=== PATIENT | male | born 1960 | race Caucasian/White ===

== ENCOUNTER 2016-10-18 05:50 | Emergency (ER) | payer BC ==
[~2016-10-18] VITALS: Ht 177.8 cm; Wt 120.4 kg
[2016-10-18 05:55] VITALS: BP 161/97; PULSE 97; RESP 18; TEMP 98.3; O2SAT 97
[2016-10-18] MEDS ORDERED: MIRA3350 PO (06:12)
[2016-10-18] MEDS ORDERED: METF850T PO (06:12)
[2016-10-18] MEDS ORDERED: LOSA25TA PO (06:12)
[2016-10-18 06:13] VITALS: BP 159/90; PULSE 95; RESP 18; TEMP 98.3; O2SAT 96
[2016-10-18] MEDS ORDERED: SODIUM CHLOR 0.9% 1000 ML INJ 1,000 ML IV SCH (06:15)
[2016-10-18] MEDS ORDERED: ONDANSETRON HCL 4 MG/2 ML VIAL IV ONE (06:15)
[2016-10-18] MEDS ORDERED: ASPI81CH CHEW (06:28)
--- NOTE | 2016-10-18 06:29 | PD ---
HPI Chief Complaint: GI Complaint Time Seen by Provider: 06:07 Travel History International Travel<30 days: No Contact w/Intl Traveler<30days: No Traveled to known affect area: No History of Present Illness HPI Is a 55-year-old man who presents to the emergency department complaining of not feeling well 15 nausea and abdominal fullness for the past several days. He has a history of rectal cancer and has an ostomy that was done in 2004. He takes MiraLAX daily to ensure soft loose bowel movements. He states for the past several days he started not feeling well. He has a lot of fatigue and tiredness. He has nausea and queasiness and doesn't really feel like she can eat much. He is not actually had any vomiting. He is not noticed any change in his stool output, which is always loose. No fevers or chills. He does get some of epigastric abdominal discomfort but it mild to moderate. He's had 3 bowel obstructions in the past but the pain was much different than what he has now. No sick contacts. No unusual or undercooked foods. No cough or cold symptoms. No chest pain or trouble breathing. No other complaints. History Past Medical History Narrative Medical History of rectal cancer, status post ostomy 2004 Diabetes Hyperlipidemia Tetanus Vaccination: Unknown Influenza Vaccination: No Social History Alcohol Use: No Tobacco Use: No Allergies-Medications (Allergen,Severity, Reaction): Coded Allergies: No Known Allergies (Unverified , 10/18/16) Reported Meds & Prescriptions Reported Meds & Active Scripts Active Reported Aspirin 81 Mg Chew 81 Mg CHEW DAILY Miralax Powder (Polyethylene Glycol 3350 Powder) 17 Gm Powd 17 Gm PO DAILY Mix and dissolve one measuring cap-ful (17 grams) in water or juice. Metformin (Metformin HCl) 850 Mg Tab 850 Mg PO BIDPC With meals Losartan (Losartan Potassium) 25 Mg Tab 25 Mg PO DAILY Review of Systems Except as stated in HPI: all other systems reviewed are Neg Physical Exam Narrative GENERAL: 55-year-old man, generally well-appearing, no acute distress. SKIN: Focused skin assessment warm/dry. HEAD: Atraumatic. Normocephalic. CARDIOVASCULAR: Regular rate and rhythm. No murmur appreciated. RESPIRATORY: No accessory muscle use. Clear to auscultation. Breath sounds equal bilaterally. GASTROINTESTINAL: Abdomen is rotund in full. There is an ostomy in the lower abdomen. There is no stool output at the moment. He has minimal epigastric tenderness. No rebound or guarding. MUSCULOSKELETAL: No obvious deformities. No edema. NEUROLOGICAL: Awake and alert. No obvious cranial nerve deficits. Motor grossly within normal limits. Normal speech. PSYCHIATRIC: Appropriate mood and affect; insight and judgment normal. Data Data Last Documented VS Vital Signs Date Time Temp Pulse Resp B/P Pulse Ox O2 Delivery O2 Flow Rate FiO2 10/18/16 06:13 98.3 95 18 159/90 96 Orders Complete Blood Count With Diff (10/18/16 06:07) Comprehensive Metabolic Panel (10/18/16 06:07) Urinalysis - C+S If Indicated (10/18/16 06:07) Iv Access Insert/Monitor (10/18/16 06:07) Sodium Chlor 0.9% 1000 Ml Inj (Ns 1000 M (10/18/16 06:15) Ondansetron Inj (Zofran Inj) (10/18/16 06:15) Troponin I (10/18/16 06:27) Electrocardiogram (10/18/16 ) MDM Medical Decision Making Medical Screen Exam Complete: Yes Emergency Medical Condition: Yes Interpretation(s) My review of EKG: Normal sinus rhythm at a rate of 88, leftward axis, normal intervals, no acute ischemia. Differential Diagnosis Gastroenteritis, enteritis, infection, ischemia, obstruction, other Narrative Course Medical decision making INITIAL: Is a 55-year-old man who presents to the emergency department complaining of fatigue and weakness, some abdominal fullness, and some nausea. No vomiting. His a history of abdominal surgery but his not having any severe pain. His output has been normal. I think that an obstruction is unlikely. Fatigue and nausea could be surrogate some myocardial ischemia. I think that's unlikely. We'll check an EKG and troponin. We'll check basic labs. There is any question of worsening disease, we'll check CT scan. Otherwise will defer imaging and will treat supportively for what is likely a stomach bug. Jordy Ni MD Oct 18, 2016 06:29
[2016-10-18 06:42] LABS: BASOPHIL % 0.4 % (0.0-2.0); EOSINOPHIL # 0.1 TH/MM3 (0-0.4); EOSINOPHIL % 2.5 % (0.0-4.0); HEMATOCRIT 43.6 % (39.0-51.0); HEMO FLAGS DIFF FINAL; LYMPH % 16.9 % (9.0-44.0); LYMPHOCYTE # 0.5 TH/MM3 (1.0-4.8); MEAN CELL VOLUME 84.7 FL (80.0-100.0); MEAN CORPUSCULAR HGB CONC 34.3 % (32.0-36.0); MONO % 9.5 % (0.0-8.0); NEUT % 70.7 % (16.0-70.0); PLATELET COUNT 179 TH/MM3 (150-450); RED BLOOD COUNT 5.14 MIL/MM3 (4.50-5.90); RED CELL DISTRIBUTION WIDTH 12.3 % (11.6-17.2)
[2016-10-18 06:45] LABS: CHLORIDE 102 MEQ/L (98-107); POTASSIUM 3.8 MEQ/L (3.5-5.1); SODIUM (NA) 137 MEQ/L (136-145)
[2016-10-18 06:49] LABS: ANION GAP 8 MEQ/L (5-15); BICARBONATE 27.3 MEQ/L (21.0-32.0); BLOOD UREA NITROGEN 12 MG/DL (7-18)
[2016-10-18 06:50] VITALS: BP 159/82; PULSE 86; RESP 16; O2SAT 94
[2016-10-18 06:52] LABS: ALT (GPT) 72 U/L (12-78); AST (GOT) 38 U/L (15-37); GLOMERULAR FILTRATION RATE 70 ML/MIN (>89)
[2016-10-18 06:55] LABS: ALKALINE PHOSPHATASE 132 U/L (45-117)
[2016-10-18 08:06] LABS: BLOOD, URINE NEG (NEG); GLUCOSE,URINE 500 mg/dL (NEG); KETONE, URINE 15 mg/dL (NEG); NITRITE,URINE NEG (NEG); PH, URINE 5.5 (5.0-8.5)
[2016-10-18 08:10] VITALS: BP 144/79; PULSE 80; RESP 16; O2SAT 94
[2016-10-18 08:16] LABS: METHOD OF COLLECTION CLEAN CATCH; MUCUS URINE RARE /lpf (OCC); SQUAMOUS EPITHELIAL CELL URINE 0-2 /hpf (0-5); URINE COLOR YELLOW (YELLW/STRAW); WBC, URINE 0-2 /hpf (0-5)
[2016-10-18 08:17] LABS: COMMENT (UR) CULT NOT INDICATED; CULTURE IF INDICATED CULT NOT INDICATED
[2016-10-18] MEDS ORDERED: ZOFR4TAB3 SL (08:23)
--- NOTE | 2016-10-18 08:24 | PD ---
Physical Exam Date Seen by Provider: Oct 18, 2016 Time Seen by Provider: 07:00 Narrative Patient initially seen by Dr. Ni, please see previous notes for further details. Awaiting UA. Abdomen is fairly benign on exam. Patient feels much improved after being given Zofran. Laboratory Tests Test 10/18/16 10/18/16 06:20 08:00 White Blood Count 3.0 TH/MM3 (4.0-11.0) Neutrophils (%) (Auto) 70.7 % (16.0-70.0) Monocytes (%) (Auto) 9.5 % (0.0-8.0) Lymphocytes # (Auto) 0.5 TH/MM3 (1.0-4.8) Estimat Glomerular Filtration 70 ML/MIN (>89) Rate Random Glucose 275 MG/DL (74-106) Calcium Level 8.2 MG/DL (8.5-10.1) Aspartate Amino Transf 38 U/L (15-37) (AST/SGOT) Alkaline Phosphatase 132 U/L (45-117) Urine Glucose (UA) 500 mg/dL (NEG) Urine Ketones 15 mg/dL (NEG) UA did not show any signs of acute UTI or other acute processes. At this point , he is doing well in the ER my plan would be to release him with follow-up to primary care physician. Return for any worsening in symptoms as necessary. The plan has been discussed with the patient and he states understanding. Data Data Last Documented VS Vital Signs Date Time Temp Pulse Resp B/P Pulse Ox O2 Delivery O2 Flow Rate FiO2 10/18/16 06:50 86 16 159/82 94 10/18/16 06:13 98.3 Orders Complete Blood Count With Diff (10/18/16 06:07) Comprehensive Metabolic Panel (10/18/16 06:07) Urinalysis - C+S If Indicated (10/18/16 06:07) Iv Access Insert/Monitor (10/18/16 06:07) Sodium Chlor 0.9% 1000 Ml Inj (Ns 1000 M (10/18/16 06:15) Ondansetron Inj (Zofran Inj) (10/18/16 06:15) Troponin I (10/18/16 06:27) Electrocardiogram (10/18/16 ) Labs Laboratory Tests Test 10/18/16 10/18/16 06:20 08:00 White Blood Count 3.0 TH/MM3 Red Blood Count 5.14 MIL/MM3 Hemoglobin 14.9 GM/DL Hematocrit 43.6 % Mean Corpuscular Volume 84.7 FL Mean Corpuscular Hemoglobin 29.0 PG Mean Corpuscular Hemoglobin 34.3 % Concent Red Cell Distribution Width 12.3 % Platelet Count 179 TH/MM3 Mean Platelet Volume 7.8 FL Neutrophils (%) (Auto) 70.7 % Lymphocytes (%) (Auto) 16.9 % Monocytes (%) (Auto) 9.5 % Eosinophils (%) (Auto) 2.5 % Basophils (%) (Auto) 0.4 % Neutrophils # (Auto) 2.0 TH/MM3 Lymphocytes # (Auto) 0.5 TH/MM3 Monocytes # (Auto) 0.3 TH/MM3 Eosinophils # (Auto) 0.1 TH/MM3 Basophils # (Auto) 0.0 TH/MM3 CBC Comment DIFF FINAL Differential Comment Sodium Level 137 MEQ/L Potassium Level 3.8 MEQ/L Chloride Level 102 MEQ/L Carbon Dioxide Level 27.3 MEQ/L Anion Gap 8 MEQ/L Blood Urea Nitrogen 12 MG/DL Creatinine 1.10 MG/DL Estimat Glomerular Filtration 70 ML/MIN Rate Random Glucose 275 MG/DL Calcium Level 8.2 MG/DL Total Bilirubin 1.0 MG/DL Aspartate Amino Transf 38 U/L (AST/SGOT) Alanine Aminotransferase 72 U/L (ALT/SGPT) Alkaline Phosphatase 132 U/L Total Protein 7.3 GM/DL Albumin 3.7 GM/DL Urine Collection Type CLEAN CATCH Urine Color YELLOW Urine Turbidity CLEAR Urine pH 5.5 Urine Specific [place] 1.028 Urine Protein TRACE mg/dL Urine Glucose (UA) 500 mg/dL Urine Ketones 15 mg/dL Urine Occult Blood NEG Urine Nitrite NEG Urine Bilirubin NEG Urine Leukocyte Esterase NEG Urine WBC 0-2 /hpf Urine Squamous Epithelial 0-2 /hpf Cells Urine Mucus RARE /lpf Microscopic Urinalysis Comment CULT NOT INDICATED MDM Medical Record Reviewed: Yes Supervised Visit with STEVAN: No Diagnosis Primary Impression: Nausea and vomiting Med/Other Pt SpecificInfo: Prescription(s) given Scripts Ondansetron Odt (Zofran Odt)4 Mg Tab4 Mg SL Q6HR PRN (Nausea/Vomiting) #7 TAB Ref 0 Prov:Nixon Burns MD 10/18/16 Disposition: 01 DISCHARGE HOME Condition: Stable Nixon Burns MD Oct 18, 2016 08:24
--- NOTE | 2016-10-18 08:36 | EKG ---
Date Performed: 10/18/2016 Time Performed: 06:36:52 PTAGE: 55 years EKG: Sinus rhythm NORMAL ECG NO PREVIOUS TRACING DOCTOR: Jordy Eldridge Interpretating Date/Time 10/18/2016 08:35:09
== END 2016-10-18 08:38 | disposition home or self-care (01) ==
LOC: PHED 05:50
DX: R11.2 Nausea with vomiting, unspecified (principal); R53.83 Other fatigue; E11.9 Type 2 diabetes mellitus without complications; E78.5 Hyperlipidemia, unspecified; Z79.82 Long term (current) use of aspirin; Z79.84 Long term (current) use of oral hypoglycemic drugs; Z85.048 Personal history of other malignant neoplasm of rectum, rectosigmoid junction, and anus
CPT/HCPCS: 80053; 81001; 84484; 85025; 93005; 96361; 96374; 99284; J2405; J7030

== ENCOUNTER 2017-12-22 12:33 | Inpatient (IN) ==
--- NOTE | 2017-12-22 13:38 | XR ---
EXAM DATE: 12/22/2017 1:33 PM EDT AGE/SEX: 57 years / Male INDICATIONS: Left lateral ankle pain. Patient states that he fell off of a ladder and rolled his ank le. CLINICAL DATA: This is the patient's initial encounter. Patient reports that signs and symptoms have been present for 1 day and indicates a pain score of 8/10. MEDICAL/SURGICAL HISTORY: None. None. COMPARISON: No prior exams available for comparison. FINDINGS: Soft tissue swelling at the lateral aspect of the ankle. The ankle mortise is approximated. There is a comminuted fractures through the mid to anterior aspect of the calcaneus. CT is suggested for furth er evaluation. There may be a oblique fracture lucency along the posterior aspect of the calcaneus as well. CONCLUSION: Calcaneus fractures. Soft tissue swelling. Electronically signed by: Luis Alfredo Allen MD 12/22/2017 1:36 PM EDT
--- NOTE | 2017-12-22 13:39 | ED ---
HPI General Chief complaint: Extremity Injury, Lower Stated complaint: L Ankle Injury Time Seen by Provider: 12/22/17 12:47 Source: patient Mode of arrival: ambulatory Limitations: no limitations History of Present Illness HPI narrative: Patient is a 57 year old male who comes in complaining of pain to his left ankle after he fell off a ladder today. He says he landed on his left foot and his ankle twisted. He then reports falling over into the grass. He denies any other injuries. He denies hitting his head or any LOC. He has not taken anything for his pain. He denies neck or back pain. He denies chest pain or abdominal pain. Severity is mild to moderate. Related Data Home Medications Medication Instructions Recorded Confirmed atorvastatin 10 mg PO DAILY 12/22/17 12/22/17 glipizide 10 mg PO DAILY 12/22/17 12/22/17 metformin 1,000 mg PO BID 12/22/17 12/22/17 Allergies Allergy/AdvReac Type Severity Reaction Status Date / Time No Known Allergies Allergy Verified 12/22/17 16:11 Review of Systems Constitutional Denies chills and Denies fever(s) ENT Denies dizziness Cardiovascular Denies chest pain and Denies dyspnea Gastrointestinal Denies abdominal pain, Denies loose stools and Denies nausea Musculoskeletal Denies myalgias, Denies arthralgias and Reports limited range of motion Integumentary/Breasts Denies rash and Denies wounds Neurologic Denies focal weakness and Denies numbness PMFSH Social History Social History Substance History: No History of Abuse Second Hand Smoke Exposure: No Smoking Status: Never smoker How Often Do You Have a Drink Containing Alcohol: 2 to 4 times a month Recent Travel in [facility] within the Last 8 Weeks: No Recent Out of Country Travel within the Last 8 Weeks: No Immunization History Tetanus Immunization: Unsure Exam Narrative Exam Narrative: GENERAL: Awake and alert, in no acute distress. SKIN: Focused skin assessment warm/dry. Abrasion to right forearm. HEAD: Atraumatic. Normocephalic. EYES: Pupils equal and round. No scleral icterus. ENT: Mucous membranes pink and moist. NECK: Trachea midline. No JVD. No cervical spine tenderness. No lumbar or thoracic spine tenderness. CARDIOVASCULAR: Regular rate and rhythm. No murmur appreciated. RESPIRATORY: No accessory muscle use. Clear to auscultation. Breath sounds equal bilaterally. MUSCULOSKELETAL: No obvious deformities. No clubbing. No cyanosis. Swelling to the left ankle. Tender to palpation of the left lateral malleolus. No tenderness to the other extremities. Pedal pulse and sensation intact. NEUROLOGICAL: Awake and alert. No obvious cranial nerve deficits. Motor grossly within normal limits. Normal speech. Course Initial Documented Vital Signs Temperature 98.5 F 12/22/17 12:37 Blood Pressure 195/89 H 12/22/17 12:37 Pulse Oximetry 96 12/22/17 12:37 Last Documented Vital Signs Temperature 98.5 F 12/22/17 12:37 Respiratory Rate 18 12/22/17 14:16 Blood Pressure 195/89 H 12/22/17 12:37 Pulse Oximetry 96 12/22/17 12:37 Medical Decision Making MDM Narrative Medical decision making narrative: Patient is a 57-year-old male who comes in complaining of left ankle pain after a fall. Exam shows tenderness to the malleolus. X-ray is concerning for calcaneal fracture. CT ordered shows multiple displaced fractures of the calcaneus. IV established, labs sent. I spoke with podiatry who would like the patient admitted for surgery tomorrow. They recommend keeping him n.p.o. after midnight. Patient be admitted for further management. Medical Screen Exam Complete: Yes Emergency Medical Condition: Yes Differential Diagnosis Differential Diagnosis: ankle fracture vs foot fracture vs sprain Medical Records Medical records reviewed: Yes I reviewed the patient's medical records. Imaging Data Radiologist's impression: Ankle X-Ray 12/22/17 13:10 Soft tissue swelling at the lateral aspect of the ankle. The ankle mortise is approximated. There is a comminuted fractures through the mid to anterior aspect of the calcaneus. CT is suggested for further evaluation. There may be a oblique fracture lucency along the posterior aspect of the calcaneus as well. CONCLUSION: Calcaneus fractures. Soft tissue swelling. Foot CT 12/22/17 13:40 CONCLUSION: 1. Base of fifth metatarsal fracture, nondisplaced. 2. Heavily comminuted fracturing of the calcaneus identified. Discharge Plan Discharge Disposition Patient Disposition: 30 Still Patient Discharge Condition Condition: Stable Discharge Details Diagnosis: Calcaneal fracture Physicians Team ED Provider: Tory Ashley Primary Care Provider: UNKNOWN, Rxs /Orders / Referrals /Forms Prescriptions: No Action glipizide 10 mg Tablet 10 mg PO DAILY RF: 0 metformin 1,000 mg Tablet 1,000 mg PO BID RF: 0 atorvastatin 10 mg Tablet 10 mg PO DAILY RF: 0 Status ED Status: With Doctor
--- NOTE | 2017-12-22 15:08 | CT ---
EXAM DATE: 12/22/2017 2:58 PM EDT AGE/SEX: 57 years / Male INDICATIONS: Trauma; fall off ladder. CLINICAL DATA: This is the patient's initial encounter. Patient reports that signs and symptoms have been present for 1 day and indicates a pain score of 10/10. MEDICAL/SURGICAL HISTORY: None. None. RADIATION DOSE: 3.04 CTDI (mGy) COMPARISON: [facility], ANKLE COMPLETE LEFT MIN 3V, 12/22/2017. . TECHNIQUE: Multiple contiguous axial images were acquired using a multirow detector CT scanner witho ut contrast. Multiplanar reconstruction was performed in the sagittal and coronal planes. Using auto mated exposure control and adjustment of the mA and/or kV according to patient size, radiation dose w as kept as low as reasonably achievable to obtain optimal diagnostic quality images. DICOM format im age data is available electronically for review and comparison. FINDINGS: There is a heavily comminuted and displaced fracture through the calcaneus identified. Multiple displ aced fragments are seen. There is a nondisplaced fracture through the base of the fifth metatarsal al so noted. There is subcutaneous edema at the lateral aspect of the ankle. CONCLUSION: 1. Base of fifth metatarsal fracture, nondisplaced. 2. Heavily comminuted fracturing of the calcaneus identified. Electronically signed by: Luis Alfredo Allen MD 12/22/2017 3:06 PM EDT
[2017-12-22] MEDS ORDERED: Morphine Inj 4 MG/ML Vial IV.PUSH ONE (17:08)
[2017-12-22 17:15] LABS: Baso % (Auto) 0.6 % (0.0-2.0); Eos # (Auto) 0.1 th/mm3 (0.0-0.4); Eos % (Auto) 1.8 % (0.0-4.0); Hematocrit 43.1 % (39.0-51.0); Hemoglobin 15.1 gm/dL (13.0-17.0); Lymph # (Auto) 1.2 th/mm3 (1.0-4.8); Lymph % (Auto) 20.1 % (9.0-44.0); Mean Corpuscular HGB Conc 35.1 % (32.0-36.0); Mean Corpuscular Hemoglobin 30.2 pg (27.0-34.0); Mean Corpuscular Volume 86.1 fL (80.0-100.0); Mean Platelet Volume 8.2 fL (7.0-11.0); Mono # (Auto) 0.3 th/mm3 (0.0-0.9); Mono % (Auto) 5.5 % (0.0-8.0); Neut # (Auto) 4.3 th/mm3 (1.8-7.7); Platelet Count 188 th/mm3 (150-450); Red Cell Distribution Width 12.6 % (11.6-17.2)
[2017-12-22] MEDS ORDERED: Acetaminophen 325 MG Tablet PO PRN (17:15)
[2017-12-22] MEDS ORDERED: Bisacodyl 10 MG Supp RECTAL PRN (17:15)
[2017-12-22] MEDS ORDERED: Dextrose 50% in Water 50 ML Vial IV.PUSH PRN (17:20)
--- NOTE | 2017-12-22 17:21 | P.HPIM ---
History of Present Illness Primary Care Physician: [facility] - History History Provided By: Patient - Tobacco History Second Hand Smoke Exposure: No Smoking Status: Never smoker - Alcohol History How Often Do You Have a Drink Containing Alcohol: 2 to 4 times a month - Substance Use History Substance History: No History of Abuse - Travel History Recent Travel in the [place] Within the Last 8 Weeks: No Recent Travel Out of the Country Within the Last 8 Weeks: No - Immunization History Tetanus Immunization: Unsure Medications and Allergies Active Medications: Active Medications Acetaminophen (Tylenol) 650 mg PO Q4H PRN PRN Reason: Temp > 100.4 Al Hydroxide/Mg Hydroxide (Milk Of Magnesia Liq) 30 ml PO Q12H PRN PRN Reason: Mild Constipation Atorvastatin Calcium (Lipitor) 10 mg PO DAILY MARGY Bisacodyl (Dulcolax Supp) 10 mg RECTAL DAILY PRN PRN Reason: SEVERE CONSITIPATION Sodium Chloride (Ns Inj) 1,000 mls @ 100 mls/hr IV.CONT .Q10H MARGY Lactulose (Lactulose Liq) 30 ml PO DAILY PRN PRN Reason: SEVERE CONSITIPATION Ondansetron HCl (Zofran Inj) 4 mg IV.PUSH Q6H PRN PRN Reason: NAUSEA OR VOMITING Senna/Docusate Sodium (Dalia-Colace) 1 tab PO BID MARGY Sennosides (Senokot) 17.2 mg PO Q12H PRN PRN Reason: Moderate Constipation Allergies Allergy/AdvReac Type Severity Reaction Status Date / Time No Known Allergies Allergy Verified 12/22/17 16:11 Home Medications Medication Instructions Recorded Confirmed Type atorvastatin 10 mg PO DAILY 12/22/17 12/22/17 History glipizide 10 mg PO DAILY 12/22/17 12/22/17 History metformin 1,000 mg PO BID 12/22/17 12/22/17 History Exam Vital signs: Vital Signs 12/22/17 12:37 12/22/17 14:16 Temperature 98.5 F Respiratory Rate 18 Blood Pressure 195/89 H Pulse Oximetry 96 Intake & Output 12/21/17 12/22/17 12/22/17 18:59 06:59 18:59 Weight 117.934 kg Results - Labs CBC & Chem 7: 12/22/17 16:00 12/22/17 16:00 Labs: Short CBC 12/22/17 Range/Units 16:00 WBC 6.0 (4.0-11.0) th/mm3 Hgb 15.1 (13.0-17.0) gm/dL Hct 43.1 (39.0-51.0) % Plt Count 188 (150-450) th/mm3 - Imaging Impressions Ankle X-Ray 12/22/17 13:10 Soft tissue swelling at the lateral aspect of the ankle. The ankle mortise is approximated. There is a comminuted fractures through the mid to anterior aspect of the calcaneus. CT is suggested for further evaluation. There may be a oblique fracture lucency along the posterior aspect of the calcaneus as well. CONCLUSION: Calcaneus fractures. Soft tissue swelling. Foot CT 12/22/17 13:40 CONCLUSION: 1. Base of fifth metatarsal fracture, nondisplaced. 2. Heavily comminuted fracturing of the calcaneus identified. Caprini VTE Risk Assessment Caprini Risk Assessment Model: Point Value = 1 Point Value = 2 Point Value = 3 Point Value = 5 Age 41-60 Minor surgery BMI > 25 kg/m2 Swollen legs Varicose veins or History of unexplained or recurrent spontaneous Oral contraceptives or hormone replacement Sepsis (< 1 month) Serious lung disease, including pneumonia (< 1 month) Abnormal pulmonary function Acute myocardial infarction Congestive heart failure (< 1 month) History of inflammatory bowel disease Medical patient at bed rest Age 61-74 Arthroscopic surgery Major open surgery (> 45 min) Laparoscopic surgery (> 45 min) Malignancy Confined to bed (> 72 hours) Immobilizing plaster cast Central venous access Age >= 75 History of VTE Family history of VTE Factor V Leiden Prothrombin 18501D Lupus anticoagulant Anticardiolipin antibodies Elevated serum homocysteine Heparin-induced thrombocytopenia Other congenital or acquired thrombophilia Stroke (< 1 month) Elective arthroplasty Hip, pelvis, or leg fracture Acute spinal cord injury (< 1 month) Prophylaxis Regimen: Total Risk Factor Score Risk Level Prophylaxis Regimen 0-1 Low Early ambulation 2 Moderate Order ONE of the following: *Sequential Compression Device (SCD) *Heparin 5000 units SQ BID 3-4 Higher Order ONE of the following medications: *Heparin 5000 units SQ TID *Enoxaparin/Lovenox 40 mg SQ daily (WT < 150 kg, CrCl > 30 mL/min) *Enoxaparin/Lovenox 30 mg SQ daily (WT < 150 kg, CrCl > 10-29 mL/min) *Enoxaparin/Lovenox 30 mg SQ BID (WT < 150 kg, CrCl > 30 mL/min) AND/OR *Sequential Compression Device (SCD) 5 or more Highest Order ONE of the following medications: *Heparin 5000 units SQ TID (Preferred with Epidurals) *Enoxaparin/Lovenox 40 mg SQ daily (WT < 150 kg, CrCl > 30 mL/min) *Enoxaparin/Lovenox 30 mg SQ daily (WT < 150 kg, CrCl > 10-29 mL/min) *Enoxaparin/Lovenox 30 mg SQ BID (WT < 150 kg, CrCl > 30 mL/min) AND *Sequential Compression Device (SCD)
[2017-12-22 17:24] LABS: Activated Partial Thrombo Time 24.3 sec (24.3-30.1); INR 1.2 Ratio; Prothrombin Time 11.9 sec (9.8-11.6)
[2017-12-22 17:37] LABS: Alkaline Phosphatase 125 U/L (45-117); Total Protein 8.2 g/dL (6.4-8.2)
[2017-12-22] MEDS: Sod Chloride 0.9% Inj 1,000 ML IV.CONT SCH (17:45)
[2017-12-22 17:46] LABS: Alanine Aminotransferase 77 U/L (12-78); Anion Gap 8 meq/L (5-15); Aspartate Aminotransferase 52 U/L (15-37); Blood Urea Nitrogen 14 mg/dL (7-18); Calcium 9.3 mg/dL (8.5-10.1); Chloride 104 meq/L (98-107); Glomerular Filtration Rate 74 mL/min (>89); Glucose,Random 142 mg/dL (74-106); Potassium 4.8 meq/L (3.5-5.1); Sodium 139 meq/L (136-145)
--- NOTE | 2017-12-22 17:57 | P.HP ---
History of Present Illness Service: [facility] Primary Care Physician: UNKNOWN History of Present Illness: This is a 57-year-old white male with significant past medical history hyperlipidemia, type 2 diabetes, rectal cancer with colectomy and colostomy. Presented to the emergency room after he fell off a ladder and landed on his left ankle. Patient indicates that he was working on his RV fixing and owning when he went to grab it became loose and he landed on his left foot and his ankle twisted. He denies any preceding symptoms such as dizziness, lightheadedness. He did not hit his head, he fell onto grass. No other injuries. He presented to the hospital for further evaluation. Patient was evaluated, had imaging studies done that showed heavily comminuted fracturing of the calcaneus. Ion Exchange Operator was called and recommended admission and to keep n.p.o. after midnight. Patient is now evaluated, indicates pain is well controlled. Denies any recent fever, chills, no chest pain, no shortness of breath. Denies any changes in bowel, has history of bowel obstructions. No urinary symptoms. He is diabetic and his blood sugars are well-controlled at home. Patient is admitted for further evaluation and treatment. 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, managed as type 2 Enlarged prostate Hx SBO Hyperlipidemia Rectal cancer - Surgical History Surgical History: Surgical History (Last Updated 12/22/17 @ 17:51 by ANA Still) Hx of cholecystectomy Hx of total colectomy - Family History Family History: Family History (Last Updated 12/22/17 @ 17:53 by ANA Still) Mother Kidney malignancy Mother Stroke Father Myocardial infarct - Social History I have reviewed the patient's Social History: Yes - Tobacco History Second Hand Smoke Exposure: No Smoking Status: Never smoker - Alcohol History How Often Do You Have a Drink Containing Alcohol: 2 to 4 times a month - Substance Use History Substance History: No History of Abuse - Travel History Recent Travel in the [facility] Within the Last 8 Weeks: No Recent Travel Out of the Country Within the Last 8 Weeks: No - Immunization History Tetanus Immunization: Unsure Medications and Allergies Active Medications: Active Medications Acetaminophen (Tylenol) 650 mg PO Q4H PRN PRN Reason: Temp > 100.4 Al Hydroxide/Mg Hydroxide (Milk Of Magnesia Liq) 30 ml PO Q12H PRN PRN Reason: Mild Constipation Atorvastatin Calcium (Lipitor) 10 mg PO DAILY MARGY Bisacodyl (Dulcolax Supp) 10 mg RECTAL DAILY PRN PRN Reason: SEVERE CONSITIPATION Dextrose (D50w Vial) 50 ml IV.PUSH UNSCH PRN PRN Reason: PER HYPOGLYCEMIA PROTOCOL Glucagon (Glucagon Inj) 1 mg OTHER PRN PRN PRN Reason: for Hypoglycemia Protocol Sodium Chloride (Ns Inj) 1,000 mls @ 100 mls/hr IV.CONT .Q10H MARGY Last Admin: 12/22/17 17:45 Dose: 100 mls/hr Insulin Human Regular (Novolin R Correctional Sugar Inj) 0 units SQ ACHS AND 3AM MARGY; Protocol Lactulose (Lactulose Liq) 30 ml PO DAILY PRN PRN Reason: SEVERE CONSITIPATION Ondansetron HCl (Zofran Inj) 4 mg IV.PUSH Q6H PRN PRN Reason: NAUSEA OR VOMITING Last Admin: 12/22/17 17:33 Dose: 4 mg Senna/Docusate Sodium (Dalia-Colace) 1 tab PO BID MARGY Sennosides (Senokot) 17.2 mg PO Q12H PRN PRN Reason: Moderate Constipation Allergies Allergy/AdvReac Type Severity Reaction Status Date / Time No Known Allergies Allergy Verified 12/22/17 16:11 Home Medications Medication Instructions Recorded Confirmed Type atorvastatin 10 mg PO DAILY 12/22/17 12/22/17 History glipizide 10 mg PO DAILY 12/22/17 12/22/17 History metformin 1,000 mg PO BID 12/22/17 12/22/17 History Exam Vital signs: Vital Signs 12/22/17 12:37 12/22/17 14:16 12/22/17 17:28 Temperature 98.5 F Pulse Rate 83 Respiratory Rate 18 18 Blood Pressure 195/89 H 157/78 H Pulse Oximetry 96 97 Intake & Output 12/21/17 12/22/17 12/22/17 18:59 06:59 18:59 Weight 117.934 kg Narrative: GENERAL: Well-nourished, well-developed patient in no apparent distress. SKIN: Warm and dry. Abrasion right FA HEAD: Atraumatic. Normocephalic. EYES: Pupils equal and round. No scleral icterus. No injection or drainage. ENT: No nasal bleeding or discharge. Mucous membranes pink and moist. NECK: Trachea midline. No JVD. CARDIOVASCULAR: Regular rate and rhythm. No murmurs, rubs or gallops RESPIRATORY: No accessory muscle use. Clear to auscultation. Breath sounds equal bilaterally. GASTROINTESTINAL: Abdomen protuberant, soft, non-tender, nondistended. Colostomy in place with loose stool. Hepatic and splenic margins not palpable. MUSCULOSKELETAL: Left foot with splint in place, intact sensation to toes. No other joint abnormality. Pedal pulses 2+ NEUROLOGICAL: Awake and alert and oriented x 3. No obvious cranial nerve deficits. Motor grossly within normal limits. Five out of 5 muscle strength in the arms and legs. Normal speech. PSYCHIATRIC: Appropriate mood and affect; insight and judgment normal. Results - Labs CBC & Chem 7: 12/22/17 16:00 12/22/17 16:00 Labs: Laboratory Results - last 24 hr 12/22/17 12/22/17 12/22/17 16:00 16:00 16:00 WBC 6.0 RBC 5.00 Hgb 15.1 Hct 43.1 MCV 86.1 MCH 30.2 MCHC 35.1 RDW 12.6 Plt Count 188 MPV 8.2 Neut % (Auto) 72.0 H Lymph % (Auto) 20.1 [place] % (Auto) 5.5 Eos % (Auto) 1.8 Baso % (Auto) 0.6 Neut # (Auto) 4.3 Lymph # (Auto) 1.2 [place] # (Auto) 0.3 Eos # (Auto) 0.1 Baso # (Auto) 0.0 WBC Differential . Differential Comment Auto diff final PT 11.9 H INR 1.2 APTT 24.3 Sodium 139 Potassium 4.8 Chloride 104 Carbon Dioxide 27.0 Anion Gap 8 BUN 14 Creatinine 1.04 Estimated GFR 74 L Random Glucose 142 H Calcium 9.3 Total Bilirubin 0.7 AST 52 H ALT 77 Alkaline Phosphatase 125 H Total Protein 8.2 Albumin 4.0 Blood Type Blood Type Recheck 12/22/17 16:00 WBC RBC Hgb Hct MCV MCH MCHC RDW Plt Count MPV Neut % (Auto) Lymph % (Auto) [place] % (Auto) Eos % (Auto) Baso % (Auto) Neut # (Auto) Lymph # (Auto) [place] # (Auto) Eos # (Auto) Baso # (Auto) WBC Differential Differential Comment PT INR APTT Sodium Potassium Chloride Carbon Dioxide Anion Gap BUN Creatinine Estimated GFR Random Glucose Calcium Total Bilirubin AST ALT Alkaline Phosphatase Total Protein Albumin Blood Type A Negative Blood Type Recheck Required - Imaging Impressions Ankle X-Ray 12/22/17 13:10 Soft tissue swelling at the lateral aspect of the ankle. The ankle mortise is approximated. There is a comminuted fractures through the mid to anterior aspect of the calcaneus. CT is suggested for further evaluation. There may be a oblique fracture lucency along the posterior aspect of the calcaneus as well. CONCLUSION: Calcaneus fractures. Soft tissue swelling. Foot CT 12/22/17 13:40 CONCLUSION: 1. Base of fifth metatarsal fracture, nondisplaced. 2. Heavily comminuted fracturing of the calcaneus identified. Caprini VTE Risk Assessment Caprini VTE Risk Assessment: No/Low Risk (score <= 1) Caprini Risk Assessment Model: Point Value = 1 Point Value = 2 Point Value = 3 Point Value = 5 Age 41-60 Minor surgery BMI > 25 kg/m2 Swollen legs Varicose veins or History of unexplained or recurrent spontaneous Oral contraceptives or hormone replacement Sepsis (< 1 month) Serious lung disease, including pneumonia (< 1 month) Abnormal pulmonary function Acute myocardial infarction Congestive heart failure (< 1 month) History of inflammatory bowel disease Medical patient at bed rest Age 61-74 Arthroscopic surgery Major open surgery (> 45 min) Laparoscopic surgery (> 45 min) Malignancy Confined to bed (> 72 hours) Immobilizing plaster cast Central venous access Age >= 75 History of VTE Family history of VTE Factor V Leiden Prothrombin [id number] Lupus anticoagulant Anticardiolipin antibodies Elevated serum homocysteine Heparin-induced thrombocytopenia Other congenital or acquired thrombophilia Stroke (< 1 month) Elective arthroplasty Hip, pelvis, or leg fracture Acute spinal cord injury (< 1 month) Prophylaxis Regimen: Total Risk Factor Score Risk Level Prophylaxis Regimen 0-1 Low Early ambulation 2 Moderate Order ONE of the following: *Sequential Compression Device (SCD) *Heparin 5000 units SQ BID 3-4 Higher Order ONE of the following medications: *Heparin 5000 units SQ TID *Enoxaparin/Lovenox 40 mg SQ daily (WT < 150 kg, CrCl > 30 mL/min) *Enoxaparin/Lovenox 30 mg SQ daily (WT < 150 kg, CrCl > 10-29 mL/min) *Enoxaparin/Lovenox 30 mg SQ BID (WT < 150 kg, CrCl > 30 mL/min) AND/OR *Sequential Compression Device (SCD) 5 or more Highest Order ONE of the following medications: *Heparin 5000 units SQ TID (Preferred with Epidurals) *Enoxaparin/Lovenox 40 mg SQ daily (WT < 150 kg, CrCl > 30 mL/min) *Enoxaparin/Lovenox 30 mg SQ daily (WT < 150 kg, CrCl > 10-29 mL/min) *Enoxaparin/Lovenox 30 mg SQ BID (WT < 150 kg, CrCl > 30 mL/min) AND *Sequential Compression Device (SCD) Assessment and Plan - Assessment (1) Calcaneal fracture Code(s): S92.009A - Unspecified fracture of unspecified calcaneus, initial encounter for closed fracture Status: Acute (2) Diabetes 1.5, managed as type 2 Code(s): E10.9 - Type 1 diabetes mellitus without complications Status: Chronic (3) Hyperlipidemia Code(s): E78.5 - Hyperlipidemia, unspecified Status: Chronic - Plan 57-year-old male who fell off a ladder and landed on left foot, twisting ankle. Imaging studies done, found with a heavily comminuted fracture of the calcaneus. S/P fall, left calcaneal fracture -Podiatry has been consulted We will order appropriate pain management, morphine IV 2 mg every 4 as needed as well as [place] 7.5/325 1 tab p.o. every 6 as needed IV fluids N.p.o. after midnight -Neurovascular checks per shift Type 2 diabetes Accu-Cheks before meals and at bedtime with insulin therapy as needed Diabetic diet -We will hold oral hypoglycemics at this time Hyperlipidemia Continue with home statin Plan of care has been discussed with the patient and his , and RN. Further management of the patient will be dependent on the hospital course (1) Calcaneal fracture Qualifiers: Encounter type: initial encounter Calcaneus location: body Fracture type: closed Fracture alignment: displaced Laterality: left Qualified Code(s): S92.012A - Displaced fracture of body of left calcaneus, initial encounter for closed fracture (3) Hyperlipidemia Qualifiers: Hyperlipidemia type: unspecified Qualified Code(s): E78.5 - Hyperlipidemia, unspecified
[2017-12-22] MEDS: Morphine Sulfate Inj 2 MG/ML Vial IV.PUSH PRN (20:39)
[2017-12-22] MEDS: Senna/Docusate Sodium 8.6/50 MG Tablet PO SCH (20:41)
[2017-12-22] MEDS: Insulin NovoLIN Regular Correctional Sugar Inj SQ SCH (20:44)
[2017-12-22] MEDS ORDERED: Insulin NovoLIN Regular Correctional Sugar Inj SQ SCH (21:00)
[2017-12-23] MEDS: Morphine Sulfate Inj 2 MG/ML Vial IV.PUSH PRN ×6 (00:27→21:56)
[2017-12-23 02:15] LABS: Bilirubin,Urine Negative (Negative); Clarity,Urine Clear (Clear); Color,Urine Yellow (Yellw/Straw); Glucose,Urine (UA) Negative (Negative); Leukocyte Esterase,Urine Negative (Negative); Mucus,Urine Few /lpf (Occasional); Nitrite,Urine Negative (Negative)
[2017-12-23] MEDS ORDERED: Chlorhexidine Gluconate 2% 1 Pack (2 Cloths) TOPICAL ONE (04:45)
[2017-12-23] MEDS ORDERED: Sodium Chlor 0.9% Inj 500 ML IV.CONT ONE (04:45)
[2017-12-23] MEDS: Insulin NovoLIN Regular Correctional Sugar Inj SQ SCH ×5 (05:18→20:56)
[2017-12-23] MEDS: Sod Chloride 0.9% Inj 1,000 ML IV.CONT SCH ×2 (05:20→19:40)
[2017-12-23 05:28] LABS: Baso % (Auto) 0.5 % (0.0-2.0); Eos # (Auto) 0.1 th/mm3 (0.0-0.4); Eos % (Auto) 1.4 % (0.0-4.0); Hemoglobin 13.5 gm/dL (13.0-17.0); Lymph # (Auto) 1.1 th/mm3 (1.0-4.8); Lymph % (Auto) 15.7 % (9.0-44.0); Mean Corpuscular HGB Conc 35.7 % (32.0-36.0); Mean Corpuscular Hemoglobin 30.2 pg (27.0-34.0); Mean Corpuscular Volume 84.6 fL (80.0-100.0); Mono # (Auto) 0.5 th/mm3 (0.0-0.9); Mono % (Auto) 6.8 % (0.0-8.0); Neut # (Auto) 5.3 th/mm3 (1.8-7.7); Neut % (Auto) 75.6 % (16.0-70.0); Platelet Count 163 th/mm3 (150-450); Red Blood Count 4.48 mil/mm3 (4.50-5.90); Red Cell Distribution Width 12.8 % (11.6-17.2); White Blood Count 7.1 th/mm3 (4.0-11.0)
[2017-12-23 05:56] LABS: Alanine Aminotransferase 61 U/L (12-78); Albumin 3.6 g/dL (3.4-5.0); Anion Gap 9 meq/L (5-15); Aspartate Aminotransferase 19 U/L (15-37); Blood Urea Nitrogen 13 mg/dL (7-18); Calcium 8.4 mg/dL (8.5-10.1); Carbon Dioxide 26.2 meq/L (21.0-32.0); Chloride 105 meq/L (98-107); Glomerular Filtration Rate 70 mL/min (>89); Glucose,Random 142 mg/dL (74-106); Potassium 3.9 meq/L (3.5-5.1); Sodium 140 meq/L (136-145)
[2017-12-23 06:02] LABS: Alkaline Phosphatase 114 U/L (45-117)
[2017-12-23] MEDS: Senna/Docusate Sodium 8.6/50 MG Tablet PO SCH ×2 (09:08→20:55)
--- NOTE | 2017-12-23 11:54 | ECG ---
Date Performed: 12/23/2017 Time Performed: 06:06:06 PTAGE: 57 years EKG: Sinus rhythm Normal ECG Since the PREVIOUS TRACING , no significant change noted PREVIOUS TRACIN10/18/2016 06.36 DOCTOR: Willy Bang Interpretating Date/Time 12/26/2017 07:51:41
--- NOTE | 2017-12-23 11:55 | P.PNIM ---
Subjective Interval history: This is a 57-year-old white male with significant past medical history hyperlipidemia, type 2 diabetes, rectal cancer with colectomy and colostomy. Presented to the emergency room after he fell off a ladder and landed on his left ankle. Patient indicates that he was working on his RV fixing and owning when he went to grab it became loose and he landed on his left foot and his ankle twisted. He denies any preceding symptoms such as dizziness, lightheadedness. He did not hit his head, he fell onto grass. No other injuries. He presented to the hospital for further evaluation. Patient was evaluated, had imaging studies done that showed heavily comminuted fracturing of the calcaneus. Carpenter Mold was called and recommended admission and to keep n.p.o. after midnight. Patient is now evaluated, indicates pain is well controlled. Denies any recent fever, chills, no chest pain, no shortness of breath. Denies any changes in bowel, has history of bowel obstructions. No urinary symptoms. He is diabetic and his blood sugars are well-controlled at home. Patient is admitted for further evaluation and treatment. 12-23 TO GO FOR SURGERY TOMORROW DW PATIENT AND RN CONTINUE PAIN CONTROL AM LABS DW RN AND PT AND CM Physical Exam Vital signs: Vital Signs 12/22/17 12:37 12/22/17 14:16 12/22/17 17:28 Temperature 98.5 F Pulse Rate 83 Respiratory Rate 18 18 Blood Pressure 195/89 H 157/78 H Pulse Oximetry 96 97 12/22/17 18:06 12/22/17 19:07 12/22/17 21:00 Temperature 98.2 F Pulse Rate 87 Respiratory Rate 18 18 18 Blood Pressure 186/97 H Pulse Oximetry 97 12/22/17 21:20 12/22/17 23:05 12/23/17 03:07 Temperature 98.7 F 98.4 F Pulse Rate 87 83 Respiratory Rate 18 18 18 Blood Pressure 176/88 H 168/88 H Pulse Oximetry 95 92 L 12/23/17 05:18 12/23/17 08:00 Temperature 98.6 F Pulse Rate 85 Respiratory Rate 18 18 Blood Pressure 177/84 H Pulse Oximetry 92 L Intake & Output 12/22/17 12/23/17 12/23/17 18:59 06:59 18:59 Intake Total 1000 / 1000 Balance 1000 / 1000 Weight 117.934 kg 117.8 kg Intake: IV 1000 / 1000 NS Inj 1,000 ML @ 100 mls/hr IV 1000 / 1000 .CONT .Q10H MARGY Rx#:[id number] Oral 0 / 0 Other: # Voids 3 # Bowel Movements 0 Weight On Admission 117.934 kg Narrative: GENERAL: Well-nourished, well-developed patient in no apparent distress. SKIN: Warm and dry. Abrasion right FA --LEFT FOOT IS DRESSED HEAD: Atraumatic. Normocephalic. EYES: Pupils equal and round. No scleral icterus. No injection or drainage. ENT: No nasal bleeding or discharge. Mucous membranes pink and moist. NECK: Trachea midline. No JVD. CARDIOVASCULAR: Regular rate and rhythm. No murmurs, rubs or gallops RESPIRATORY: No accessory muscle use. Clear to auscultation. Breath sounds equal bilaterally. GASTROINTESTINAL: Abdomen protuberant, soft, non-tender, nondistended. Colostomy in place with loose stool. Hepatic and splenic margins not palpable. MUSCULOSKELETAL: Left foot with splint in place, intact sensation to toes. No other joint abnormality. Pedal pulses 2+ --LEFT FOOT IS DRESSED NEUROLOGICAL: Awake and alert and oriented x 3. No obvious cranial nerve deficits. Motor grossly within normal limits. Five out of 5 muscle strength in the arms and legs. Normal speech. PSYCHIATRIC: Appropriate mood and affect; insight and judgment normal. Results - Labs CBC & Chem 7: 12/23/17 04:31 12/23/17 04:31 Laboratory Results - last 24 hr 12/22/17 12/22/17 12/22/17 16:00 16:00 16:00 WBC 6.0 RBC 5.00 Hgb 15.1 Hct 43.1 MCV 86.1 MCH 30.2 MCHC 35.1 RDW 12.6 Plt Count 188 MPV 8.2 Neut % (Auto) 72.0 H Lymph % (Auto) 20.1 [place] % (Auto) 5.5 Eos % (Auto) 1.8 Baso % (Auto) 0.6 Neut # (Auto) 4.3 Lymph # (Auto) 1.2 [place] # (Auto) 0.3 Eos # (Auto) 0.1 Baso # (Auto) 0.0 WBC Differential . Differential Comment Auto diff final PT 11.9 H INR 1.2 APTT 24.3 Sodium 139 Potassium 4.8 Chloride 104 Carbon Dioxide 27.0 Anion Gap 8 BUN 14 Creatinine 1.04 Estimated GFR 74 L POC Glucose Random Glucose 142 H Calcium 9.3 Total Bilirubin 0.7 AST 52 H ALT 77 Alkaline Phosphatase 125 H Total Protein 8.2 Albumin 4.0 Urine Color Urine Clarity Urine pH Ur Specific [place] Urine Protein Urine Glucose (UA) Urine Ketones Urine Occult Blood Urine Nitrate Urine Bilirubin Urine Urobilinogen Ur Leukocyte Esterase Urine RBC Urine WBC Urine Mucus Micro UA Comment Ur Microscopic Review Urine Culture Comments Blood Type Blood Type Recheck Antibody Screen 12/22/17 12/22/17 12/22/17 16:00 20:32 23:40 WBC RBC Hgb Hct MCV MCH MCHC RDW Plt Count MPV Neut % (Auto) Lymph % (Auto) [place] % (Auto) Eos % (Auto) Baso % (Auto) Neut # (Auto) Lymph # (Auto) [place] # (Auto) Eos # (Auto) Baso # (Auto) WBC Differential Differential Comment PT INR APTT Sodium Potassium Chloride Carbon Dioxide Anion Gap BUN Creatinine Estimated GFR POC Glucose 167 H Random Glucose Calcium Total Bilirubin AST ALT Alkaline Phosphatase Total Protein Albumin Urine Color Yellow Urine Clarity Clear Urine pH 5.0 Ur Specific [place] 1.020 Urine Protein Negative Urine Glucose (UA) Negative Urine Ketones Negative Urine Occult Blood Negative Urine Nitrate Negative Urine Bilirubin Negative Urine Urobilinogen Less than 2 Ur Leukocyte Esterase Negative Urine RBC 1 Urine WBC 1 Urine Mucus Few H Micro UA Comment Culture not ind Ur Microscopic Review Not Reportable Urine Culture Comments Culture not ind Blood Type A Negative Blood Type Recheck Required Antibody Screen Negative 12/23/17 12/23/17 12/23/17 04:31 04:31 05:13 WBC 7.1 RBC 4.48 L Hgb 13.5 Hct 38.0 L MCV 84.6 MCH 30.2 MCHC 35.7 RDW 12.8 Plt Count 163 MPV 8.0 Neut % (Auto) 75.6 H Lymph % (Auto) 15.7 [place] % (Auto) 6.8 Eos % (Auto) 1.4 Baso % (Auto) 0.5 Neut # (Auto) 5.3 Lymph # (Auto) 1.1 [place] # (Auto) 0.5 Eos # (Auto) 0.1 Baso # (Auto) 0.0 WBC Differential . Differential Comment Auto diff final PT INR APTT Sodium 140 Potassium 3.9 D Chloride 105 Carbon Dioxide 26.2 Anion Gap 9 BUN 13 Creatinine 1.09 Estimated GFR 70 L POC Glucose 154 H Random Glucose 142 H Calcium 8.4 L D Total Bilirubin 0.7 AST 19 ALT 61 Alkaline Phosphatase 114 Total Protein 7.0 D Albumin 3.6 Urine Color Urine Clarity Urine pH Ur Specific [place] Urine Protein Urine Glucose (UA) Urine Ketones Urine Occult Blood Urine Nitrate Urine Bilirubin Urine Urobilinogen Ur Leukocyte Esterase Urine RBC Urine WBC Urine Mucus Micro UA Comment Ur Microscopic Review Urine Culture Comments Blood Type Blood Type Recheck Antibody Screen 12/23/17 09:54 WBC RBC Hgb Hct MCV MCH MCHC RDW Plt Count MPV Neut % (Auto) Lymph % (Auto) [place] % (Auto) Eos % (Auto) Baso % (Auto) Neut # (Auto) Lymph # (Auto) [place] # (Auto) Eos # (Auto) Baso # (Auto) WBC Differential Differential Comment PT INR APTT Sodium Potassium Chloride Carbon Dioxide Anion Gap BUN Creatinine Estimated GFR POC Glucose 164 H Random Glucose Calcium Total Bilirubin AST ALT Alkaline Phosphatase Total Protein Albumin Urine Color Urine Clarity Urine pH Ur Specific [place] Urine Protein Urine Glucose (UA) Urine Ketones Urine Occult Blood Urine Nitrate Urine Bilirubin Urine Urobilinogen Ur Leukocyte Esterase Urine RBC Urine WBC Urine Mucus Micro UA Comment Ur Microscopic Review Urine Culture Comments Blood Type Blood Type Recheck Antibody Screen - Imaging Impressions Ankle X-Ray 12/22/17 13:10 Soft tissue swelling at the lateral aspect of the ankle. The ankle mortise is approximated. There is a comminuted fractures through the mid to anterior aspect of the calcaneus. CT is suggested for further evaluation. There may be a oblique fracture lucency along the posterior aspect of the calcaneus as well. CONCLUSION: Calcaneus fractures. Soft tissue swelling. Foot CT 12/22/17 13:40 CONCLUSION: 1. Base of fifth metatarsal fracture, nondisplaced. 2. Heavily comminuted fracturing of the calcaneus identified. Assessment and Plan - Assessment (1) Calcaneal fracture Code(s): S92.009A - Unspecified fracture of unspecified calcaneus, initial encounter for closed fracture Status: Acute (2) Diabetes 1.5, managed as type 2 Code(s): E10.9 - Type 1 diabetes mellitus without complications Status: Chronic (3) Hyperlipidemia Code(s): E78.5 - Hyperlipidemia, unspecified Status: Chronic - Plan 57-year-old male who fell off a ladder and landed on left foot, twisting ankle. Imaging studies done, found with a heavily comminuted fracture of the calcaneus. S/P fall, left calcaneal fracture -Podiatry has been consulted We will order appropriate pain management, morphine IV 2 mg every 4 as needed as well as [place] 7.5/325 1 tab p.o. every 6 as needed IV fluids N.p.o. after midnight -Neurovascular checks per shift FOR SURGERY ON 11-23 WITH PODIATRY Type 2 diabetes Accu-Cheks before meals and at bedtime with insulin therapy as needed Diabetic diet -We will hold oral hypoglycemics at this time Hyperlipidemia Continue with home statin AM LABS AWAIT SURGERY Code Status: FULL CODE Discussed Condition With: RN AND PT AND CASE MANAGEMENT Discharge Planning: ONCE CLEARED BY PODIATRY (1) Calcaneal fracture Qualifiers: Encounter type: initial encounter Calcaneus location: body Fracture type: closed Fracture alignment: displaced Laterality: left Qualified Code(s): S92.012A - Displaced fracture of body of left calcaneus, initial encounter for closed fracture (3) Hyperlipidemia Qualifiers: Hyperlipidemia type: unspecified Qualified Code(s): E78.5 - Hyperlipidemia, unspecified
--- NOTE | 2017-12-23 13:48 | P.PNPOD ---
Subjective Interval history: Left calcaneal fracture left 5th metatarsal fracture Seen at bedside this am Physical Exam Vital signs: Vital Signs 12/22/17 14:16 12/22/17 17:28 12/22/17 18:06 Temperature Pulse Rate 83 Respiratory Rate 18 18 18 Blood Pressure 157/78 H Pulse Oximetry 97 12/22/17 19:07 12/22/17 21:00 12/22/17 21:20 Temperature 98.2 F Pulse Rate 87 Respiratory Rate 18 18 18 Blood Pressure 186/97 H Pulse Oximetry 97 12/22/17 23:05 12/23/17 03:07 12/23/17 05:18 Temperature 98.7 F 98.4 F Pulse Rate 87 83 Respiratory Rate 18 18 18 Blood Pressure 176/88 H 168/88 H Pulse Oximetry 95 92 L 12/23/17 08:00 12/23/17 12:00 Temperature 98.6 F 98.5 F Pulse Rate 85 93 H Respiratory Rate 18 18 Blood Pressure 177/84 H 185/87 H Pulse Oximetry 92 L 92 L Intake & Output 12/22/17 12/23/17 12/23/17 18:59 06:59 18:59 Intake Total 1000 / 1000 Balance 1000 / 1000 Weight 117.934 kg 117.8 kg Intake: IV 1000 / 1000 NS Inj 1,000 ML @ 100 mls/hr IV 1000 / 1000 .CONT .Q10H REPLACED BY [facility] Rx#:[id number] Oral 0 / 0 Other: # Voids 3 # Bowel Movements 0 Weight On Admission 117.934 kg Narrative: LLE NVS intact CFT < 3 secs Sensation intact. Medications and Allergies Active Medications: Active Medications Acetaminophen (Tylenol) 650 mg PO Q4H PRN PRN Reason: Temp > 100.4 Hydrocodone Bitart/Acetaminophen ([place] 7.5/325) 1 tab PO Q6H PRN PRN Reason: PAIN SCALE 4 TO 6 MODERATE Last Admin: 12/23/17 08:59 Dose: 1 tab Al Hydroxide/Mg Hydroxide (Milk Of Magndarshan Liq) 30 ml PO Q12H PRN PRN Reason: Mild Constipation Atorvastatin Calcium (Lipitor) 10 mg PO DAILY REPLACED BY [facility] Last Admin: 12/23/17 09:08 Dose: Not Given Bisacodyl (Dulcolax Supp) 10 mg RECTAL DAILY PRN PRN Reason: SEVERE CONSITIPATION Clonidine HCl (Catapres) 0.1 mg PO Q6H PRN PRN Reason: HYPERTENSION Dextrose (D50w Vial) 50 ml IV.PUSH UNSCH PRN PRN Reason: PER HYPOGLYCEMIA PROTOCOL Glucagon (Glucagon Inj) 1 mg OTHER PRN PRN PRN Reason: for Hypoglycemia Protocol Sodium Chloride (Ns Inj) 1,000 mls @ 100 mls/hr IV.CONT .Q10H MARGY Last Admin: 12/23/17 05:20 Dose: 100 mls/hr Lactated Ringer's (Lr 1000 Ml Inj) 1,000 mls @ 30 mls/hr IV.CONT .Q24H ONE Stop: 12/24/17 04:44 Sodium Chloride (Ns Inj) 500 mls @ 30 mls/hr IV.CONT .[id number] ONE Stop: 12/23/17 21:24 Insulin Human Regular (Novolin R Correctional Sugar Inj) 0 units SQ ACHS AND 3AM MARGY; Protocol Last Admin: 12/23/17 13:10 Dose: 3 units Lactulose (Lactulose Liq) 30 ml PO DAILY PRN PRN Reason: SEVERE CONSITIPATION Metformin HCl (Glucophage) 1,000 mg PO BID REPLACED BY [facility] Last Admin: 12/23/17 13:07 Dose: 1,000 mg Morphine Sulfate (Morphine Inj) 2 mg IV.PUSH Q4H PRN PRN Reason: PAIN SCALE 7 TO 10 SEVERE Last Admin: 12/23/17 09:49 Dose: 2 mg Ondansetron HCl (Zofran Inj) 4 mg IV.PUSH Q6H PRN PRN Reason: NAUSEA OR VOMITING Last Admin: 12/23/17 00:27 Dose: 4 mg Senna/Docusate Sodium (Dalia-Colace) 1 tab PO BID REPLACED BY [facility] Last Admin: 12/23/17 09:08 Dose: Not Given Sennosides (Senokot) 17.2 mg PO Q12H PRN PRN Reason: Moderate Constipation Allergies Allergy/AdvReac Type Severity Reaction Status Date / Time No Known Allergies Allergy Verified 12/22/17 16:11 Home Medications Medication Instructions Recorded Confirmed Type atorvastatin 10 mg PO DAILY 12/22/17 12/22/17 History glipizide 10 mg PO DAILY 12/22/17 12/22/17 History metformin 1,000 mg PO BID 12/22/17 12/22/17 History Results - Labs CBC & Chem 7: 12/23/17 04:31 12/23/17 04:31 Laboratory Results - last 24 hr 12/22/17 12/22/17 12/22/17 16:00 16:00 16:00 WBC 6.0 RBC 5.00 Hgb 15.1 Hct 43.1 MCV 86.1 MCH 30.2 MCHC 35.1 RDW 12.6 Plt Count 188 MPV 8.2 Neut % (Auto) 72.0 H Lymph % (Auto) 20.1 [place] % (Auto) 5.5 Eos % (Auto) 1.8 Baso % (Auto) 0.6 Neut # (Auto) 4.3 Lymph # (Auto) 1.2 [place] # (Auto) 0.3 Eos # (Auto) 0.1 Baso # (Auto) 0.0 WBC Differential . Differential Comment Auto diff final PT 11.9 H INR 1.2 APTT 24.3 Sodium 139 Potassium 4.8 Chloride 104 Carbon Dioxide 27.0 Anion Gap 8 BUN 14 Creatinine 1.04 Estimated GFR 74 L POC Glucose Random Glucose 142 H Calcium 9.3 Total Bilirubin 0.7 AST 52 H ALT 77 Alkaline Phosphatase 125 H Total Protein 8.2 Albumin 4.0 Urine Color Urine Clarity Urine pH Ur Specific [place] Urine Protein Urine Glucose (UA) Urine Ketones Urine Occult Blood Urine Nitrate Urine Bilirubin Urine Urobilinogen Ur Leukocyte Esterase Urine RBC Urine WBC Urine Mucus Micro UA Comment Ur Microscopic Review Urine Culture Comments Blood Type Blood Type Recheck Antibody Screen 12/22/17 12/22/17 12/22/17 16:00 20:32 23:40 WBC RBC Hgb Hct MCV MCH MCHC RDW Plt Count MPV Neut % (Auto) Lymph % (Auto) [place] % (Auto) Eos % (Auto) Baso % (Auto) Neut # (Auto) Lymph # (Auto) [place] # (Auto) Eos # (Auto) Baso # (Auto) WBC Differential Differential Comment PT INR APTT Sodium Potassium Chloride Carbon Dioxide Anion Gap BUN Creatinine Estimated GFR POC Glucose 167 H Random Glucose Calcium Total Bilirubin AST ALT Alkaline Phosphatase Total Protein Albumin Urine Color Yellow Urine Clarity Clear Urine pH 5.0 Ur Specific [place] 1.020 Urine Protein Negative Urine Glucose (UA) Negative Urine Ketones Negative Urine Occult Blood Negative Urine Nitrate Negative Urine Bilirubin Negative Urine Urobilinogen Less than 2 Ur Leukocyte Esterase Negative Urine RBC 1 Urine WBC 1 Urine Mucus Few H Micro UA Comment Culture not ind Ur Microscopic Review Not Reportable Urine Culture Comments Culture not ind Blood Type A Negative Blood Type Recheck Required Antibody Screen Negative 12/23/17 12/23/17 12/23/17 04:31 04:31 05:13 WBC 7.1 RBC 4.48 L Hgb 13.5 Hct 38.0 L MCV 84.6 MCH 30.2 MCHC 35.7 RDW 12.8 Plt Count 163 MPV 8.0 Neut % (Auto) 75.6 H Lymph % (Auto) 15.7 [place] % (Auto) 6.8 Eos % (Auto) 1.4 Baso % (Auto) 0.5 Neut # (Auto) 5.3 Lymph # (Auto) 1.1 [place] # (Auto) 0.5 Eos # (Auto) 0.1 Baso # (Auto) 0.0 WBC Differential . Differential Comment Auto diff final PT INR APTT Sodium 140 Potassium 3.9 D Chloride 105 Carbon Dioxide 26.2 Anion Gap 9 BUN 13 Creatinine 1.09 Estimated GFR 70 L POC Glucose 154 H Random Glucose 142 H Calcium 8.4 L D Total Bilirubin 0.7 AST 19 ALT 61 Alkaline Phosphatase 114 Total Protein 7.0 D Albumin 3.6 Urine Color Urine Clarity Urine pH Ur Specific [place] Urine Protein Urine Glucose (UA) Urine Ketones Urine Occult Blood Urine Nitrate Urine Bilirubin Urine Urobilinogen Ur Leukocyte Esterase Urine RBC Urine WBC Urine Mucus Micro UA Comment Ur Microscopic Review Urine Culture Comments Blood Type Blood Type Recheck Antibody Screen 12/23/17 12/23/17 09:54 12:41 WBC RBC Hgb Hct MCV MCH MCHC RDW Plt Count MPV Neut % (Auto) Lymph % (Auto) [place] % (Auto) Eos % (Auto) Baso % (Auto) Neut # (Auto) Lymph # (Auto) [place] # (Auto) Eos # (Auto) Baso # (Auto) WBC Differential Differential Comment PT INR APTT Sodium Potassium Chloride Carbon Dioxide Anion Gap BUN Creatinine Estimated GFR POC Glucose 164 H 246 H Random Glucose Calcium Total Bilirubin AST ALT Alkaline Phosphatase Total Protein Albumin Urine Color Urine Clarity Urine pH Ur Specific [place] Urine Protein Urine Glucose (UA) Urine Ketones Urine Occult Blood Urine Nitrate Urine Bilirubin Urine Urobilinogen Ur Leukocyte Esterase Urine RBC Urine WBC Urine Mucus Micro UA Comment Ur Microscopic Review Urine Culture Comments Blood Type Blood Type Recheck Antibody Screen - Imaging Impressions Foot CT 12/22/17 13:40 CONCLUSION: 1. Base of fifth metatarsal fracture, nondisplaced. 2. Heavily comminuted fracturing of the calcaneus identified. Assessment and Plan - Assessment (1) Calcaneal fracture Code(s): S92.009A - Unspecified fracture of unspecified calcaneus, initial encounter for closed fracture Status: Acute (2) Diabetes 1.5, managed as type 2 Code(s): E10.9 - Type 1 diabetes mellitus without complications Status: Chronic - Plan Plan for OR 12/24/17 approximately 1500 Consent for ORIF, left ankle. Plan for d/c on 12/26/17 F/u with Dr Espinoza on 12/27/17 (1) Calcaneal fracture Qualifiers: Encounter type: initial encounter Calcaneus location: body Fracture type: closed Fracture alignment: displaced Laterality: left Qualified Code(s): S92.012A - Displaced fracture of body of left calcaneus, initial encounter for closed fracture
[2017-12-24] MEDS: Morphine Sulfate Inj 2 MG/ML Vial IV.PUSH PRN ×3 (01:53→11:17)
[2017-12-24] MEDS: Sod Chloride 0.9% Inj 1,000 ML IV.CONT SCH ×3 (03:07→23:43)
[2017-12-24] MEDS: Insulin NovoLIN Regular Correctional Sugar Inj SQ SCH ×4 (04:13→23:41)
[2017-12-24 06:15] LABS: Baso % (Auto) 0.5 % (0.0-2.0); Eos # (Auto) 0.1 th/mm3 (0.0-0.4); Eos % (Auto) 1.5 % (0.0-4.0); Hematocrit 38.5 % (39.0-51.0); Hemoglobin 13.5 gm/dL (13.0-17.0); Lymph # (Auto) 1.1 th/mm3 (1.0-4.8); Lymph % (Auto) 16.8 % (9.0-44.0); Mean Corpuscular HGB Conc 35.1 % (32.0-36.0); Mean Corpuscular Hemoglobin 30.4 pg (27.0-34.0); Mean Corpuscular Volume 86.4 fL (80.0-100.0); Mean Platelet Volume 7.9 fL (7.0-11.0); Mono # (Auto) 0.6 th/mm3 (0.0-0.9); Mono % (Auto) 8.3 % (0.0-8.0); Neut # (Auto) 4.9 th/mm3 (1.8-7.7); Neut % (Auto) 72.9 % (16.0-70.0); Platelet Count 157 th/mm3 (150-450); Red Blood Count 4.46 mil/mm3 (4.50-5.90); Red Cell Distribution Width 12.7 % (11.6-17.2); White Blood Count 6.8 th/mm3 (4.0-11.0)
[2017-12-24 06:31] LABS: Albumin 3.5 g/dL (3.4-5.0); Anion Gap 12 meq/L (5-15); Aspartate Aminotransferase 20 U/L (15-37); Blood Urea Nitrogen 12 mg/dL (7-18); Calcium 8.5 mg/dL (8.5-10.1); Carbon Dioxide 26.4 meq/L (21.0-32.0); Chloride 101 meq/L (98-107); Glomerular Filtration Rate 78 mL/min (>89); Glucose,Random 141 mg/dL (74-106); Magnesium 1.8 mg/dL (1.5-2.5); Potassium 3.9 meq/L (3.5-5.1); Sodium 139 meq/L (136-145)
[2017-12-24 06:40] LABS: Alanine Aminotransferase 51 U/L (12-78); Alkaline Phosphatase 125 U/L (45-117); Free T4 (Free Thyroxine) 1.18 ng/dL (0.76-1.46); Phosphorus 3.1 mg/dL (2.5-4.9); Total Protein 7.1 g/dL (6.4-8.2)
[2017-12-24] MEDS: Senna/Docusate Sodium 8.6/50 MG Tablet PO SCH (08:35)
--- NOTE | 2017-12-24 14:07 | P.PNIM ---
Subjective Interval history: This is a 57-year-old white male with significant past medical history hyperlipidemia, type 2 diabetes, rectal cancer with colectomy and colostomy. Presented to the emergency room after he fell off a ladder and landed on his left ankle. Patient indicates that he was working on his RV fixing and owning when he went to grab it became loose and he landed on his left foot and his ankle twisted. He denies any preceding symptoms such as dizziness, lightheadedness. He did not hit his head, he fell onto grass. No other injuries. He presented to the hospital for further evaluation. Patient was evaluated, had imaging studies done that showed heavily comminuted fracturing of the calcaneus. Cargo Service Agent was called and recommended admission and to keep n.p.o. after midnight. Patient is now evaluated, indicates pain is well controlled. Denies any recent fever, chills, no chest pain, no shortness of breath. Denies any changes in bowel, has history of bowel obstructions. No urinary symptoms. He is diabetic and his blood sugars are well-controlled at home. Patient is admitted for further evaluation and treatment. 12-23 TO GO FOR SURGERY TOMORROW DW PATIENT AND RN CONTINUE PAIN CONTROL AM LABS DW RN AND PT AND CM 12-24 TO GO FOR SURGERY WITH PODIATRY TODAY ON LEFT ANKLE FOOT Physical Exam Vital signs: Vital Signs 12/23/17 16:00 12/23/17 18:55 12/23/17 22:00 Temperature 99.3 F 98.9 F Pulse Rate 97 H 95 H Respiratory Rate 16 18 18 Blood Pressure 183/94 H 184/86 H Pulse Oximetry 92 L 93 L 12/23/17 23:09 12/24/17 03:06 12/24/17 03:15 Temperature 99.0 F 98.4 F Pulse Rate 94 H 92 H Respiratory Rate 18 18 18 Blood Pressure 170/92 H 172/91 H Pulse Oximetry 92 L 94 L 12/24/17 08:00 12/24/17 12:00 Temperature 98.6 F 98.9 F Pulse Rate 88 98 H Respiratory Rate 18 18 Blood Pressure 167/90 H 172/85 H Pulse Oximetry 92 L 91 L Intake & Output 12/23/17 12/24/17 12/24/17 18:59 06:59 18:59 Intake Total 1600 / 1600 360 / 360 Output Total 800 / 800 800 / 800 Balance 800 / 800 -440 / -440 Weight 117.8 kg Intake: IV 1000 / 1000 NS Inj 1,000 ML @ 100 mls/hr IV 1000 / 1000 .CONT .Q10H MARGY Rx#:[id number] Oral 600 / 600 360 / 360 Output: Urine 800 / 800 800 / 800 Other: # Bowel Movements 0 Narrative: GENERAL: Well-nourished, well-developed patient in no apparent distress. SKIN: Warm and dry. Abrasion right FA --LEFT FOOT IS DRESSED HEAD: Atraumatic. Normocephalic. EYES: Pupils equal and round. No scleral icterus. No injection or drainage. ENT: No nasal bleeding or discharge. Mucous membranes pink and moist. NECK: Trachea midline. No JVD. CARDIOVASCULAR: Regular rate and rhythm. No murmurs, rubs or gallops RESPIRATORY: No accessory muscle use. Clear to auscultation. Breath sounds equal bilaterally. GASTROINTESTINAL: Abdomen protuberant, soft, non-tender, nondistended. Colostomy in place with loose stool. Hepatic and splenic margins not palpable. MUSCULOSKELETAL: Left foot with splint in place, intact sensation to toes. No other joint abnormality. Pedal pulses 2+ --LEFT FOOT IS DRESSED NEUROLOGICAL: Awake and alert and oriented x 3. No obvious cranial nerve deficits. Motor grossly within normal limits. Five out of 5 muscle strength in the arms and legs. Normal speech. PSYCHIATRIC: Appropriate mood and affect; insight and judgment normal. Results - Labs CBC & Chem 7: 12/24/17 04:48 12/24/17 04:48 Laboratory Results - last 24 hr 12/23/17 12/23/17 12/24/17 17:34 20:27 03:06 WBC RBC Hgb Hct MCV MCH MCHC RDW Plt Count MPV Neut % (Auto) Lymph % (Auto) [place] % (Auto) Eos % (Auto) Baso % (Auto) Neut # (Auto) Lymph # (Auto) [place] # (Auto) Eos # (Auto) Baso # (Auto) WBC Differential Differential Comment Sodium Potassium Chloride Carbon Dioxide Anion Gap BUN Creatinine Estimated GFR POC Glucose 189 H 182 H 155 H Random Glucose Calcium Phosphorus Magnesium Total Bilirubin AST ALT Alkaline Phosphatase Total Protein Albumin TSH Free T4 12/24/17 12/24/17 12/24/17 04:48 04:48 12:38 WBC 6.8 RBC 4.46 L Hgb 13.5 Hct 38.5 L MCV 86.4 MCH 30.4 MCHC 35.1 RDW 12.7 Plt Count 157 MPV 7.9 Neut % (Auto) 72.9 H Lymph % (Auto) 16.8 [place] % (Auto) 8.3 H Eos % (Auto) 1.5 Baso % (Auto) 0.5 Neut # (Auto) 4.9 Lymph # (Auto) 1.1 [place] # (Auto) 0.6 Eos # (Auto) 0.1 Baso # (Auto) 0.0 WBC Differential . Differential Comment Auto diff final Sodium 139 Potassium 3.9 Chloride 101 Carbon Dioxide 26.4 Anion Gap 12 BUN 12 Creatinine 1.00 Estimated GFR 78 L POC Glucose 154 H Random Glucose 141 H Calcium 8.5 Phosphorus 3.1 Magnesium 1.8 Total Bilirubin 1.2 H AST 20 ALT 51 Alkaline Phosphatase 125 H Total Protein 7.1 Albumin 3.5 TSH 2.530 Free T4 1.18 - Imaging ITS Impressions Ankle X-Ray 12/22/17 13:10 Soft tissue swelling at the lateral aspect of the ankle. The ankle mortise is approximated. There is a comminuted fractures through the mid to anterior aspect of the calcaneus. CT is suggested for further evaluation. There may be a oblique fracture lucency along the posterior aspect of the calcaneus as well. CONCLUSION: Calcaneus fractures. Soft tissue swelling. Foot CT 12/22/17 13:40 CONCLUSION: 1. Base of fifth metatarsal fracture, nondisplaced. 2. Heavily comminuted fracturing of the calcaneus identified. Assessment and Plan - Assessment (1) Calcaneal fracture Code(s): S92.009A - Unspecified fracture of unspecified calcaneus, initial encounter for closed fracture Status: Acute (2) Diabetes 1.5, managed as type 2 Code(s): E10.9 - Type 1 diabetes mellitus without complications Status: Chronic (3) Hyperlipidemia Code(s): E78.5 - Hyperlipidemia, unspecified Status: Chronic - Plan 57-year-old male who fell off a ladder and landed on left foot, twisting ankle. Imaging studies done, found with a heavily comminuted fracture of the calcaneus. S/P fall, left calcaneal fracture -Podiatry has been consulted We will order appropriate pain management, morphine IV 2 mg every 4 as needed as well as [place] 7.5/325 1 tab p.o. every 6 as needed IV fluids N.p.o. after midnight -Neurovascular checks per shift FOR SURGERY ON 11-23 WITH PODIATRY Type 2 diabetes Accu-Cheks before meals and at bedtime with insulin therapy as needed Diabetic diet -We will hold oral hypoglycemics at this time Hyperlipidemia Continue with home statin AM LABS AWAIT SURGERY Code Status: FULL CODE Discussed Condition With: RN AND PT AND CM Discharge Planning: ONCE CLEARED BY PODIATRY (1) Calcaneal fracture Qualifiers: Encounter type: initial encounter Calcaneus location: body Fracture type: closed Fracture alignment: displaced Laterality: left Qualified Code(s): S92.012A - Displaced fracture of body of left calcaneus, initial encounter for closed fracture (3) Hyperlipidemia Qualifiers: Hyperlipidemia type: unspecified Qualified Code(s): E78.5 - Hyperlipidemia, unspecified
[2017-12-24 16:06] LABS: Hemoglobin A1c 6.7 % (4.3-6.0)
[2017-12-24] MEDS ORDERED: Glycopyrrolate Inj 1 MG/5 ML Syringe IV.PUSH ONE (19:15)
[2017-12-24] MEDS ORDERED: Metoprolol Inj 5 MG/5 ML Vial IV.PUSH ONE (19:15)
[2017-12-24] MEDS ORDERED: Neostigmine Inj 5 MG/5 ML Syringe IV.PUSH ONE (19:15)
[2017-12-24] MEDS ORDERED: Lidocaine PF 1% Inj 5 ML Syringe OTHER ONE (19:15)
[2017-12-24] MEDS ORDERED: ceFAZolin 2 GM Premix Inj 2 GM/50 ML PIGGYBACK IV.SIG ONE (19:17)
[2017-12-24] MEDS ORDERED: Bupivacaine PF 0.25% Inj 10 ML Vial INFILTRATN ONE (21:35)
--- NOTE | 2017-12-24 21:48 | P.BOP ---
- Preoperative Diagnosis (1) Fracture of calcaneus, left, closed - Postoperative Diagnosis (1) Fracture of calcaneus, left, closed Date of procedure: 12/24/17 Procedure: 1. ORIF left calcaneus Left foot prepped/draped in supine position. Timeouts per protocol. Transcalcaneal centrally-threaded pin placed and traction to reduce varus component. Lateral sinus tarsi mini-open approach to reduce subtalar joint and fixate using 2x 4.0mm cannulated screws, followed by percutaneous fixation of plantar tuber fragment to subtalar fragments utilizing 2 x 7.3mm screws 50mm. C- arm used to confirm reduction and placement of stable fixation. Vivogen bone graft placed in void. Irrigation and closure with 2-0 vicryl and 2-0 nylon. Short posterior splint applied with heel offloaded. Left thigh tourniquet at 250mmHg x 120 minutes 2g ancef IV preop 10mL 0.5% marcaine plain Disposition: Nonweightbearing left foot in splint. Keep clean, dry, intact. Follow up with Dr Espinoza in 1 week after discharge. Clear for discharge from podiatry standpoint tomorrow if pain controlled. Implants: See implant log: Synthes 7.3mm screws 50mm x 2, synthes 4.0mm screws x 2 Vivogen bone graft Anesthesia: GETA, local (10mL 0.5% marcaine plain) Surgeon: Jasmina Espinoza DPM Lock Tender Chief Operator: Clementina Sterling Estimated blood loss (mL): 20 Tourniquet time (min): 120 Pathology: none sent Condition: stable Disposition: PACU
[2017-12-24] MEDS ORDERED: fentaNYL Citrate Inj 100 MCG/2 ML Ampul ONE (22:11)
[2017-12-24] MEDS ORDERED: Morphine Inj 4 MG/ML Vial ONE (22:12)
--- NOTE | 2017-12-24 22:56 | XR ---
EXAM DATE: 12/24/2017 10:07 PM EDT AGE/SEX: 57 years / Male INDICATIONS: ORIF Left heel CLINICAL DATA: This is the patient's subsequent encounter. Patient reports that signs and symptoms h ave been present for 2 days and indicates a pain score of Nonresponsive. MEDICAL/SURGICAL HISTORY: Non-responsive. Non-responsive. COMPARISON: No prior exams available for comparison. FINDINGS: 2 images are recorded digitally in the operating room using C-arm during placement of 4 screws in the calcaneus. CONCLUSION: Intraoperative images Electronically signed by: Erlin Keane MD 12/24/2017 10:54 PM EDT
[2017-12-24] MEDS ORDERED: Sodium Chloride 0.9% 2 ML Flush PRN IV.FLUSH (22:58)
--- NOTE | 2017-12-24 23:47 | XR ---
EXAM DATE: 12/24/2017 10:03 PM EDT AGE/SEX: 57 years / Male INDICATIONS: Post op left heel. CLINICAL DATA: This is the patient's subsequent encounter. Patient reports that signs and symptoms h ave been present for 2 days and indicates a pain score of Nonresponsive. MEDICAL/SURGICAL HISTORY: Non-responsive. Non-responsive. COMPARISON: [facility], ANKLE COMPLETE LEFT MIN 3V, 12/22/2017. . FINDINGS: 3 views of the left heel. 4 internal fixation screws are seen in the calcaneus. Comminuted calcaneus fracture is again seen. No evidence of new fracture. CONCLUSION: Comminuted calcaneus fracture with [address]. Electronically signed by: Rusty Schwartz MD 12/24/2017 11:46 PM EDT
[2017-12-25] MEDS: Senna/Docusate Sodium 8.6/50 MG Tablet PO SCH ×3 (00:12→22:13)
[2017-12-25 00:29] LABS: ABG Base Excess -0.3 mmol/L (-2-2); ABG PCO2 41 mmHg (38-42); ABG PO2 69 mmHg (61-120)
[2017-12-25] MEDS: Morphine Sulfate Inj 2 MG/ML Vial IV.PUSH PRN ×4 (00:34→20:01)
[2017-12-25] MEDS: Insulin NovoLIN Regular Correctional Sugar Inj SQ SCH ×5 (02:26→22:13)
[2017-12-25 04:47] LABS: Baso % (Auto) 0.1 % (0.0-2.0); Hematocrit 37.8 % (39.0-51.0); Hemoglobin 13.6 gm/dL (13.0-17.0); Lymph # (Auto) 0.4 th/mm3 (1.0-4.8); Lymph % (Auto) 4.8 % (9.0-44.0); Mean Corpuscular HGB Conc 35.9 % (32.0-36.0); Mean Corpuscular Hemoglobin 30.4 pg (27.0-34.0); Mean Corpuscular Volume 84.6 fL (80.0-100.0); Mean Platelet Volume 7.5 fL (7.0-11.0); Mono # (Auto) 0.5 th/mm3 (0.0-0.9); Mono % (Auto) 6.1 % (0.0-8.0); Platelet Count 174 th/mm3 (150-450); Red Blood Count 4.47 mil/mm3 (4.50-5.90); Red Cell Distribution Width 12.5 % (11.6-17.2); White Blood Count 7.8 th/mm3 (4.0-11.0)
[2017-12-25 05:13] LABS: Albumin 3.5 g/dL (3.4-5.0); Anion Gap 12 meq/L (5-15); Aspartate Aminotransferase 17 U/L (15-37); Blood Urea Nitrogen 15 mg/dL (7-18); Calcium 8.8 mg/dL (8.5-10.1); Carbon Dioxide 22.7 meq/L (21.0-32.0); Chloride 99 meq/L (98-107); Glomerular Filtration Rate 68 mL/min (>89); Glucose,Random 219 mg/dL (74-106); Magnesium 1.7 mg/dL (1.5-2.5); Potassium 3.9 meq/L (3.5-5.1); Sodium 134 meq/L (136-145)
[2017-12-25 05:15] LABS: Alanine Aminotransferase 44 U/L (12-78); Phosphorus 2.8 mg/dL (2.5-4.9)
[2017-12-25 05:17] LABS: Alkaline Phosphatase 128 U/L (45-117); Total Protein 7.5 g/dL (6.4-8.2)
--- NOTE | 2017-12-25 05:21 | MP ---
cc: Jasmina Espinoza DPM DATE OF OPERATION: 12/24/2017 SURGEON: Jasmina Espinoza DPM PREOPERATIVE DIAGNOSIS: Left calcaneal fracture. POSTOPERATIVE DIAGNOSIS: Left calcaneal fracture. PROCEDURE PERFORMED: Left calcaneal open reduction and internal fixation. ANESTHESIOLOGIST: Dr. Contreras. ANESTHESIA: pot holder binder: Dr. Sterling. HEMOSTASIS: Left calf tourniquet at 250 mmHg for 124 minutes. ESTIMATED BLOOD LOSS: Less than 20 mL. MATERIALS: 2-0 Vicryl and 3-0 nylon, 7.3 x 50 cortical Synthes screws and 4.0 x 40 x2 cortical long thread screws. BRIEF HISTORY: The patient is a 57-year-old male who fell off his RV, sustained a calcaneal fracture. He was admitted to the hospital and freely consents to surgical intervention. No guarantees were given or implied. All questions answered. PROCEDURE IN DETAIL: The patient was brought into the operating room and placed on the operating room table in the supine position. After general anesthesia was administered, the left foot was prepped, scrubbed and draped in usual sterile and aseptic manner. The left foot was exsanguinated and the tourniquet was inflated to 250 mmHg on the left foot and ankle. Attention was then directed to the lateral aspect of the heel where a subfibular sinus tarsi lateral incision was carried through the skin and soft tissue. Care was taken to protect all neurovascular bundles. The peroneals retracted out of harm's way. Bleeders were bovied or tied as necessary. The fracture site was identified, curetted and then the middle fracture fragment was elevated into anatomic position at the subtalar joint. Two K-wires were used to temporarily fixate the fragment. A Schanz pin was then threaded through the body of the calcaneus from lateral to medial, which was used to joystick that posterior fragment in order to maintain anatomical position. Good intraoperative alignment was noted and two 4.0 x 40 cortical screws were applied across that fragment from lateral to medial into the sustentaculum chitra on the medial aspect. Then, 7.3 cortical screws were then directed from posterior to anterior, capturing the medial and lateral fragment. They were 50 mm in length. Using intraoperative fluoroscopy, good alignment was noted. K-wires were removed and at this time, the pin in the posterior heel was then removed as well too. The incision was flushed and then ViviGen was then applied into the void or defect of the calcaneus. The incisions were then closed using 2-0 Vicryl, 3-0 nylon. Postop block was carried out using 30 mL of 0.5% Marcaine plain. Dry sterile dressings were then applied using Xeroform, 4 x 4s, Shabana, ABDs, an Rell wrap, and then Sof-Rol and a well-padded posterior splint applied. The patient tolerated the procedure completion. Tourniquet was deflated after 127 minutes. Prompt hyperemic response to digits 1-5 on the left. The patient tolerated the procedure completion and will be transferred to the PACU for a brief period of postop monitoring, after which he will be discharged to the floor and then followed appropriately while in-house. Jasmina Espinoza DPM SR/evaristo , 10:06 PM , 10:18 PM
[2017-12-25] MEDS: Sod Chloride 0.9% Inj 1,000 ML IV.CONT SCH ×2 (07:30→17:03)
[2017-12-25] MEDS: Sodium Chloride 0.9% 2 ML Flush BID IV.FLUSH SCH ×2 (10:48→20:01)
--- NOTE | 2017-12-25 13:09 | MB ---
cc: Jasmina Espinoza DPM DATE: 12/23/2017 TIME OF CONSULTATION: 1000 this morning. HISTORY OF PRESENT ILLNESS: The patient is a 57-year-old male with a left calcaneal fracture. The patient with hyperlipidemia, type 2 diabetes, resolved colorectal cancer with colostomy. The patient fell off his RV and landed on the left foot and twisted his ankle. Denies any loss of consciousness. Denies any nausea, vomiting, fever, diarrhea, chills. REVIEW OF SYSTEMS: Negative per HPI. PAST MEDICAL HISTORY: Per HPI. PAST SURGICAL HISTORY: Cholecystectomy, total colectomy. FAMILY HISTORY: Noncontributory. SOCIAL HISTORY: Smoking history denied. Alcohol, social. Substance abuse, denies all. MEDICATIONS: Per medical chart. PHYSICAL EXAMINATION: Left foot in a splint. CFT is less than 3 seconds. Intact sensation to digits. Range of motion intact to digits. WBC 7.1, RBC 4.48, H and H 13.[address] with a comminuted calcaneal fracture with displacement. Positive joint depression. ASSESSMENT: 1. Left comminuted calcaneal fracture. 2. Left fifth metatarsal fracture, nondisplaced. PLAN: The patient was taken to the operating room 12/24/2017 for open reduction, internal fixation of the left calcaneus. Risks, benefits, pros and cons were discussed briefly, consented to surgical intervention. No guarantees were given or implied. Jasmina Espinoza DPM SR/rita/sagar , 01:52 PM , 01:59 PM
--- NOTE | 2017-12-25 16:09 | P.PNPOD ---
Subjective Interval history: s/p ORIF left calcaneus 12/24/17 Review of Systems All other systems reviewed negative except as stated in HPI Physical Exam Vital signs: Vital Signs 12/24/17 17:07 12/24/17 17:30 12/24/17 18:20 Temperature 99.7 F H Pulse Rate 102 H 99 H 93 H Respiratory Rate 17 16 16 Blood Pressure 177/91 H 176/86 H 160/83 H Pulse Oximetry 92 L 93 L 94 L 12/24/17 19:00 12/24/17 22:03 12/24/17 22:05 Temperature 98.7 F Pulse Rate 96 H 85 86 Respiratory Rate 16 23 16 Blood Pressure 187/80 H 133/64 141/64 H Pulse Oximetry 96 93 L 95 12/24/17 22:15 12/24/17 22:30 12/24/17 22:45 Temperature Pulse Rate 84 93 H 90 Respiratory Rate 16 14 10 L Blood Pressure 151/69 H 150/73 H 152/79 H Pulse Oximetry 95 91 L 92 L 12/24/17 23:00 12/25/17 00:00 12/25/17 00:56 Temperature 98.5 F 98 F Pulse Rate 83 97 H Respiratory Rate 12 17 18 Blood Pressure 152/81 H 155/80 H Pulse Oximetry 91 L 94 L 12/25/17 04:00 12/25/17 08:00 12/25/17 12:00 Temperature 98.5 F 98.5 F 108 F H Pulse Rate 106 H 103 H 108 H Respiratory Rate 17 22 22 Blood Pressure 166/82 H 167/89 H 157/82 H Pulse Oximetry 91 L 96 93 L Intake & Output 12/24/17 12/25/17 12/25/17 18:59 06:59 18:59 Intake Total 0 / 0 2500 / 2500 Output Total 10 / 10 150 / 150 Balance 0 / 0 2490 / 2490 -150 / -150 Weight 122.8 kg Intake: IV 1000 / 1000 NS Inj 1,000 ML @ 100 mls/hr IV 1000 / 1000 .CONT .Q10H [facility] Rx#:[id number] Oral 0 / 0 Anesthesia Amount 1500 / 1500 Output: Urine 150 / 150 Estimated Blood Loss 10 / 10 Other: # Voids 5 1 Date of Last Bowel Movement 12/24/17 12/25/17 Narrative: Neurovascularly intact left lower extremity. Splint left clean, dry, intact. Medications and Allergies Active Medications: Active Medications Acetaminophen (Tylenol) 650 mg PO Q4H PRN PRN Reason: Temp > 100.4 Hydrocodone Bitart/Acetaminophen ([place] 7.5/325) 1 tab PO Q6H PRN PRN Reason: PAIN SCALE 4 TO 6 MODERATE Last Admin: 12/25/17 10:46 Dose: 1 tab Al Hydroxide/Mg Hydroxide (Milk Of Magnesia Liq) 30 ml PO Q12H PRN PRN Reason: Mild Constipation Atorvastatin Calcium (Lipitor) 10 mg PO DAILY [facility] Last Admin: 12/25/17 09:35 Dose: 10 mg Bisacodyl (Dulcolax Supp) 10 mg RECTAL DAILY PRN PRN Reason: SEVERE CONSITIPATION Clonidine HCl (Catapres) 0.1 mg PO Q6H PRN PRN Reason: HYPERTENSION Last Admin: 12/24/17 03:12 Dose: 0.1 mg Dextrose (D50w Vial) 50 ml IV.PUSH UNSCH PRN PRN Reason: PER HYPOGLYCEMIA PROTOCOL Glucagon (Glucagon Inj) 1 mg OTHER PRN PRN PRN Reason: for Hypoglycemia Protocol Sodium Chloride (Ns Inj) 1,000 mls @ 100 mls/hr IV.CONT .Q10H [facility] Last Admin: 12/25/17 07:30 Dose: Not Given Insulin Human Regular (Novolin R Correctional Sugar Inj) 0 units SQ ACHS AND 3AM MARYG; Protocol Last Admin: 12/25/17 14:35 Dose: 1 units Lactulose (Lactulose Liq) 30 ml PO DAILY PRN PRN Reason: SEVERE CONSITIPATION Metformin HCl (Glucophage) 1,000 mg PO BID [facility] Last Admin: 12/25/17 09:35 Dose: 1,000 mg Miscellaneous Information (Mis Nursing Information) 0 each OTHER UNSCH PRN PRN Reason: SEE LABEL COMMENTS Stop: 12/25/17 22:34 Morphine Sulfate (Morphine Inj) 2 mg IV.PUSH Q4H PRN PRN Reason: PAIN SCALE 7 TO 10 SEVERE Last Admin: 12/25/17 14:35 Dose: 2 mg Ondansetron HCl (Zofran Inj) 4 mg IV.PUSH Q6H PRN PRN Reason: NAUSEA OR VOMITING Last Admin: 12/23/17 00:27 Dose: 4 mg Senna/Docusate Sodium (Dalia-Colace) 1 tab PO BID [facility] Last Admin: 12/25/17 09:34 Dose: 1 tab Sennosides (Senokot) 17.2 mg PO Q12H PRN PRN Reason: Moderate Constipation Sodium Chloride (Ns Flush) 2 ml IV.FLUSH BID [facility] Last Admin: 12/25/17 10:48 Dose: 2 ml Sodium Chloride (Ns Flush) 2 ml IV.FLUSH PRN PRN PRN Reason: FLUSH AFTER USING IV ACCESS Allergies Allergy/AdvReac Type Severity Reaction Status Date / Time No Known Allergies Allergy Verified 12/22/17 16:11 Home Medications Medication Instructions Recorded Confirmed Type atorvastatin 10 mg PO DAILY 12/22/17 12/22/17 History glipizide 10 mg PO DAILY 12/22/17 12/22/17 History metformin 1,000 mg PO BID 12/22/17 12/22/17 History Results - Labs CBC & Chem 7: 12/25/17 04:19 12/25/17 04:19 Laboratory Results - last 24 hr 12/24/17 12/24/17 12/24/17 00:18 04:48 22:07 WBC RBC Hgb Hct MCV MCH MCHC RDW Plt Count MPV Neut % (Auto) Lymph % (Auto) [place] % (Auto) Eos % (Auto) Baso % (Auto) Neut # (Auto) Lymph # (Auto) [place] # (Auto) Eos # (Auto) Baso # (Auto) WBC Differential Differential Comment Puncture Site Right radial Patient Temperature 98.6 O2 Saturation 91 ABG pH 7.39 ABG pCO2 41 ABG pO2 69 ABG HCO3 24 ABG O2 Content 17.8 ABG Base Excess -0.3 ABG Methemoglobin 1.2 Kyle Test Present Hemoglobin 14.0 Carboxyhemoglobin 2.0 O2 Delivery Device Nasal cannula Liter Flow 2.00 Critical Value No Sodium Potassium Chloride Carbon Dioxide Anion Gap BUN Creatinine Estimated GFR POC Glucose 199 H Random Glucose Hemoglobin A1c 6.7 H Calcium Phosphorus Magnesium Total Bilirubin AST ALT Alkaline Phosphatase Total Protein Albumin 12/25/17 12/25/17 12/25/17 02:12 04:19 04:19 WBC 7.8 RBC 4.47 L Hgb 13.6 Hct 37.8 L MCV 84.6 MCH 30.4 MCHC 35.9 RDW 12.5 Plt Count 174 MPV 7.5 Neut % (Auto) 89.0 H Lymph % (Auto) 4.8 L [place] % (Auto) 6.1 Eos % (Auto) 0.0 Baso % (Auto) 0.1 Neut # (Auto) 7.0 Lymph # (Auto) 0.4 L [place] # (Auto) 0.5 Eos # (Auto) 0.0 Baso # (Auto) 0.0 WBC Differential . Differential Comment Auto diff final Puncture Site Patient Temperature O2 Saturation ABG pH ABG pCO2 ABG pO2 ABG HCO3 ABG O2 Content ABG Base Excess ABG Methemoglobin Kyle Test Hemoglobin Carboxyhemoglobin O2 Delivery Device Liter Flow Critical Value Sodium 134 L Potassium 3.9 Chloride 99 Carbon Dioxide 22.7 Anion Gap 12 BUN 15 Creatinine 1.12 Estimated GFR 68 L POC Glucose 233 H Random Glucose 219 H Hemoglobin A1c Calcium 8.8 Phosphorus 2.8 Magnesium 1.7 Total Bilirubin 1.1 H AST 17 ALT 44 Alkaline Phosphatase 128 H Total Protein 7.5 Albumin 3.5 12/25/17 12:19 WBC RBC Hgb Hct MCV MCH MCHC RDW Plt Count MPV Neut % (Auto) Lymph % (Auto) [place] % (Auto) Eos % (Auto) Baso % (Auto) Neut # (Auto) Lymph # (Auto) [place] # (Auto) Eos # (Auto) Baso # (Auto) WBC Differential Differential Comment Puncture Site Patient Temperature O2 Saturation ABG pH ABG pCO2 ABG pO2 ABG HCO3 ABG O2 Content ABG Base Excess ABG Methemoglobin Kyle Test Hemoglobin Carboxyhemoglobin O2 Delivery Device Liter Flow Critical Value Sodium Potassium Chloride Carbon Dioxide Anion Gap BUN Creatinine Estimated GFR POC Glucose 175 H Random Glucose Hemoglobin A1c Calcium Phosphorus Magnesium Total Bilirubin AST ALT Alkaline Phosphatase Total Protein Albumin - Imaging Impressions Foot X-Ray 12/24/17 00:00 CONCLUSION: Comminuted calcaneus fracture with 4 internal [address] screws in place. Foot X-Ray 12/24/17 00:00 CONCLUSION: Intraoperative images Assessment and Plan - Assessment (1) Calcaneal fracture Code(s): S92.009A - Unspecified fracture of unspecified calcaneus, initial encounter for closed fracture Status: Acute Plan: Keep dressing/splint clean, dry, intact. Follow up with Dr Espinoza in 1 week after discharge for dressing change. Nonweightbearing left lower extremity (1) Calcaneal fracture Qualifiers: Encounter type: subsequent encounter Calcaneus location: body Fracture type : closed Fracture alignment: displaced Laterality: left
--- NOTE | 2017-12-25 16:18 | P.PNIM ---
Subjective Interval history: This is a 57-year-old white male with significant past medical history hyperlipidemia, type 2 diabetes, rectal cancer with colectomy and colostomy. Presented to the emergency room after he fell off a ladder and landed on his left ankle. Patient indicates that he was working on his RV fixing and owning when he went to grab it became loose and he landed on his left foot and his ankle twisted. He denies any preceding symptoms such as dizziness, lightheadedness. He did not hit his head, he fell onto grass. No other injuries. He presented to the hospital for further evaluation. Patient was evaluated, had imaging studies done that showed heavily comminuted fracturing of the calcaneus. [employer] was called and recommended admission and to keep n.p.o. after midnight. Patient is now evaluated, indicates pain is well controlled. Denies any recent fever, chills, no chest pain, no shortness of breath. Denies any changes in bowel, has history of bowel obstructions. No urinary symptoms. He is diabetic and his blood sugars are well-controlled at home. Patient is admitted for further evaluation and treatment. 12-23 TO GO FOR SURGERY TOMORROW DW PATIENT AND RN CONTINUE PAIN CONTROL AM LABS DW RN AND PT AND CM 12-24 TO GO FOR SURGERY WITH PODIATRY TODAY ON LEFT ANKLE FOOT 12-25 HAD SURGERY YESTERDAY ON LEFT FOOT ANKLE Physical Exam Vital signs: Vital Signs 12/24/17 17:07 12/24/17 17:30 12/24/17 18:20 Temperature 99.7 F H Pulse Rate 102 H 99 H 93 H Respiratory Rate 17 16 16 Blood Pressure 177/91 H 176/86 H 160/83 H Pulse Oximetry 92 L 93 L 94 L 12/24/17 19:00 12/24/17 22:03 12/24/17 22:05 Temperature 98.7 F Pulse Rate 96 H 85 86 Respiratory Rate 16 23 16 Blood Pressure 187/80 H 133/64 141/64 H Pulse Oximetry 96 93 L 95 12/24/17 22:15 12/24/17 22:30 12/24/17 22:45 Temperature Pulse Rate 84 93 H 90 Respiratory Rate 16 14 10 L Blood Pressure 151/69 H 150/73 H 152/79 H Pulse Oximetry 95 91 L 92 L 12/24/17 23:00 12/25/17 00:00 12/25/17 00:56 Temperature 98.5 F 98 F Pulse Rate 83 97 H Respiratory Rate 12 17 18 Blood Pressure 152/81 H 155/80 H Pulse Oximetry 91 L 94 L 12/25/17 04:00 12/25/17 08:00 12/25/17 12:00 Temperature 98.5 F 98.5 F 108 F H Pulse Rate 106 H 103 H 108 H Respiratory Rate 17 22 22 Blood Pressure 166/82 H 167/89 H 157/82 H Pulse Oximetry 91 L 96 93 L Intake & Output 12/24/17 12/25/17 12/25/17 18:59 06:59 18:59 Intake Total 0 / 0 2500 / 2500 Output Total 150 / 150 Balance 0 / 0 2490 / 2490 -150 / -150 Weight 122.8 kg Intake: IV 1000 / 1000 NS Inj 1,000 ML @ 100 mls/hr IV 1000 / 1000 .CONT .Q10H [facility] Rx#:[id number] Oral 0 / 0 Anesthesia Amount 1500 / 1500 Output: Urine 150 / 150 Estimated Blood Loss Other: # Voids 5 1 Date of Last Bowel Movement 12/24/17 12/25/17 Narrative: GENERAL: Well-nourished, well-developed patient in no apparent distress. SKIN: Warm and dry. Abrasion right FA --LEFT FOOT IS DRESSED HEAD: Atraumatic. Normocephalic. EYES: Pupils equal and round. No scleral icterus. No injection or drainage. ENT: No nasal bleeding or discharge. Mucous membranes pink and moist. NECK: Trachea midline. No JVD. CARDIOVASCULAR: Regular rate and rhythm. No murmurs, rubs or gallops RESPIRATORY: No accessory muscle use. Clear to auscultation. Breath sounds equal bilaterally. GASTROINTESTINAL: Abdomen protuberant, soft, non-tender, nondistended. Colostomy in place with loose stool. Hepatic and splenic margins not palpable. MUSCULOSKELETAL: Left foot with splint in place, intact sensation to toes. No other joint abnormality. Pedal pulses 2+ --LEFT FOOT IS DRESSED NEUROLOGICAL: Awake and alert and oriented x 3. No obvious cranial nerve deficits. Motor grossly within normal limits. Five out of 5 muscle strength in the arms and legs. Normal speech. PSYCHIATRIC: Appropriate mood and affect; insight and judgment normal. Results - Labs CBC & Chem 7: 12/25/17 04:19 12/25/17 04:19 Laboratory Results - last 24 hr 12/24/17 12/24/17 12/24/17 00:18 04:48 22:07 WBC RBC Hgb Hct MCV MCH MCHC RDW Plt Count MPV Neut % (Auto) Lymph % (Auto) [place] % (Auto) Eos % (Auto) Baso % (Auto) Neut # (Auto) Lymph # (Auto) [place] # (Auto) Eos # (Auto) Baso # (Auto) WBC Differential Differential Comment Puncture Site Right radial Patient Temperature 98.6 O2 Saturation 91 ABG pH 7.39 ABG pCO2 41 ABG pO2 69 ABG HCO3 24 ABG O2 Content 17.8 ABG Base Excess -0.3 ABG Methemoglobin 1.2 Kyle Test Present Hemoglobin 14.0 Carboxyhemoglobin 2.0 O2 Delivery Device Nasal cannula Liter Flow 2.00 Critical Value No Sodium Potassium Chloride Carbon Dioxide Anion Gap BUN Creatinine Estimated GFR POC Glucose 199 H Random Glucose Hemoglobin A1c 6.7 H Calcium Phosphorus Magnesium Total Bilirubin AST ALT Alkaline Phosphatase Total Protein Albumin 12/25/17 12/25/17 12/25/17 02:12 04:19 04:19 WBC 7.8 RBC 4.47 L Hgb 13.6 Hct 37.8 L MCV 84.6 MCH 30.4 MCHC 35.9 RDW 12.5 Plt Count 174 MPV 7.5 Neut % (Auto) 89.0 H Lymph % (Auto) 4.8 L [place] % (Auto) 6.1 Eos % (Auto) 0.0 Baso % (Auto) 0.1 Neut # (Auto) 7.0 Lymph # (Auto) 0.4 L [place] # (Auto) 0.5 Eos # (Auto) 0.0 Baso # (Auto) 0.0 WBC Differential . Differential Comment Auto diff final Puncture Site Patient Temperature O2 Saturation ABG pH ABG pCO2 ABG pO2 ABG HCO3 ABG O2 Content ABG Base Excess ABG Methemoglobin Kyle Test Hemoglobin Carboxyhemoglobin O2 Delivery Device Liter Flow Critical Value Sodium 134 L Potassium 3.9 Chloride 99 Carbon Dioxide 22.7 Anion Gap 12 BUN 15 Creatinine 1.12 Estimated GFR 68 L POC Glucose 233 H Random Glucose 219 H Hemoglobin A1c Calcium 8.8 Phosphorus 2.8 Magnesium 1.7 Total Bilirubin 1.1 H AST 17 ALT 44 Alkaline Phosphatase 128 H Total Protein 7.5 Albumin 3.5 12/25/17 12:19 WBC RBC Hgb Hct MCV MCH MCHC RDW Plt Count MPV Neut % (Auto) Lymph % (Auto) [place] % (Auto) Eos % (Auto) Baso % (Auto) Neut # (Auto) Lymph # (Auto) [place] # (Auto) Eos # (Auto) Baso # (Auto) WBC Differential Differential Comment Puncture Site Patient Temperature O2 Saturation ABG pH ABG pCO2 ABG pO2 ABG HCO3 ABG O2 Content ABG Base Excess ABG Methemoglobin Kyle Test Hemoglobin Carboxyhemoglobin O2 Delivery Device Liter Flow Critical Value Sodium Potassium Chloride Carbon Dioxide Anion Gap BUN Creatinine Estimated GFR POC Glucose 175 H Random Glucose Hemoglobin A1c Calcium Phosphorus Magnesium Total Bilirubin AST ALT Alkaline Phosphatase Total Protein Albumin - Imaging Impressions Foot X-Ray 12/24/17 00:00 CONCLUSION: Comminuted calcaneus fracture with [address]. Foot X-Ray 12/24/17 00:00 CONCLUSION: Intraoperative images - Procedures - Preoperative Diagnosis (1) Fracture of calcaneus, left, closed - Postoperative Diagnosis (1) Fracture of calcaneus, left, closed Date of procedure: 12/24/17 Procedure: 1. ORIF left calcaneus Left foot prepped/draped in supine position. Timeouts per protocol. Transcalcaneal centrally-threaded pin placed and traction to reduce varus component. Lateral sinus tarsi mini-open approach to reduce subtalar joint and fixate using 2x 4.0mm cannulated screws, followed by percutaneous fixation of plantar tuber fragment to subtalar fragments utilizing 2 x 7.3mm screws 50mm. C- arm used to confirm reduction and placement of stable fixation. Vivogen bone graft placed in void. Irrigation and closure with 2-0 vicryl and 2-0 nylon. Short posterior splint applied with heel offloaded. Left thigh tourniquet at 250mmHg x 120 minutes 2g ancef IV preop 10mL 0.5% marcaine plain Disposition: Nonweightbearing left foot in splint. Keep clean, dry, intact. Follow up with Dr Espinoza in 1 week after discharge. Clear for discharge from podiatry standpoint tomorrow if pain controlled. Implants: See implant log: Synthes 7.3mm screws 50mm x 2, synthes 4.0mm screws x 2 Vivogen bone graft Anesthesia: GETA, local (10mL 0.5% marcaine plain) Surgeon: Jasmina Espinoza DPM Assessment and Plan - Assessment (1) Calcaneal fracture Code(s): S92.009A - Unspecified fracture of unspecified calcaneus, initial encounter for closed fracture Status: Acute (2) Diabetes 1.5, managed as type 2 Code(s): E10.9 - Type 1 diabetes mellitus without complications Status: Chronic (3) Hyperlipidemia Code(s): E78.5 - Hyperlipidemia, unspecified Status: Chronic - Plan 57-year-old male who fell off a ladder and landed on left foot, twisting ankle. Imaging studies done, found with a heavily comminuted fracture of the calcaneus. S/P fall, left calcaneal fracture -Podiatry has been consulted We will order appropriate pain management, morphine IV 2 mg every 4 as needed as well as [place] 7.5/325 1 tab p.o. every 6 as needed IV fluids N.p.o. after midnight -Neurovascular checks per shift FOR SURGERY ON 11-23 WITH PODIATRY SP PROCEDURE ON 11-23 Type 2 diabetes Accu-Cheks before meals and at bedtime with insulin therapy as needed Diabetic diet -We will hold oral hypoglycemics at this time Hyperlipidemia Continue with home statin AM LABS HAD SURGERY Code Status: FULL CODE Discussed Condition With: RN AND PT AND CM DC TOMORROW IF PAIN IS IMPROVED Discharge Planning: ONCE CLEARED BY PODIATRY (1) Calcaneal fracture Qualifiers: Encounter type: subsequent encounter Calcaneus location: body Fracture type : closed Fracture alignment: displaced Laterality: left Qualified Code(s): S92.012A - Displaced fracture of body of left calcaneus, initial encounter for closed fracture (3) Hyperlipidemia Qualifiers: Hyperlipidemia type: unspecified Qualified Code(s): E78.5 - Hyperlipidemia, unspecified
[2017-12-26] MEDS: Morphine Sulfate Inj 2 MG/ML Vial IV.PUSH PRN (03:12)
[2017-12-26] MEDS: Insulin NovoLIN Regular Correctional Sugar Inj SQ SCH ×4 (04:53→18:20)
[2017-12-26] MEDS: Sod Chloride 0.9% Inj 1,000 ML IV.CONT SCH ×2 (04:53→12:31)
[2017-12-26 06:44] LABS: Baso % (Auto) 0.5 % (0.0-2.0); Eos # (Auto) 0.1 th/mm3 (0.0-0.4); Eos % (Auto) 1.2 % (0.0-4.0); Hematocrit 37.3 % (39.0-51.0); Lymph # (Auto) 1.1 th/mm3 (1.0-4.8); Lymph % (Auto) 16.7 % (9.0-44.0); Mean Corpuscular HGB Conc 34.8 % (32.0-36.0); Mean Corpuscular Hemoglobin 29.9 pg (27.0-34.0); Mean Corpuscular Volume 86.1 fL (80.0-100.0); Mono # (Auto) 0.7 th/mm3 (0.0-0.9); Mono % (Auto) 10.8 % (0.0-8.0); Neut # (Auto) 4.6 th/mm3 (1.8-7.7); Neut % (Auto) 70.8 % (16.0-70.0); Platelet Count 192 th/mm3 (150-450); Red Blood Count 4.34 mil/mm3 (4.50-5.90); Red Cell Distribution Width 12.8 % (11.6-17.2); White Blood Count 6.5 th/mm3 (4.0-11.0)
[2017-12-26 06:57] LABS: Albumin 3.3 g/dL (3.4-5.0); Anion Gap 9 meq/L (5-15); Aspartate Aminotransferase 12 U/L (15-37); Blood Urea Nitrogen 17 mg/dL (7-18); Calcium 8.9 mg/dL (8.5-10.1); Chloride 100 meq/L (98-107); Glomerular Filtration Rate 81 mL/min (>89); Glucose,Random 169 mg/dL (74-106); Magnesium 1.8 mg/dL (1.5-2.5); Potassium 3.5 meq/L (3.5-5.1); Sodium 136 meq/L (136-145)
[2017-12-26 07:01] LABS: Alanine Aminotransferase 35 U/L (12-78); Alkaline Phosphatase 115 U/L (45-117); Phosphorus 2.8 mg/dL (2.5-4.9); Total Protein 7.4 g/dL (6.4-8.2)
[2017-12-26] MEDS: Sodium Chloride 0.9% 2 ML Flush BID IV.FLUSH SCH (08:29)
[2017-12-26] MEDS: Senna/Docusate Sodium 8.6/50 MG Tablet PO SCH (08:29)
[2017-12-26 08:38] VITALS: RESP 20
--- NOTE | 2017-12-26 12:39 | P.PNPOD ---
Physical Exam Vital signs: Vital Signs 12/25/17 16:00 12/25/17 19:41 12/25/17 23:49 Temperature 99.1 F 99.0 F 98.5 F Pulse Rate 109 H 113 H 113 H Respiratory Rate 20 18 18 Blood Pressure 177/88 H 167/85 H 150/79 H Pulse Oximetry 94 L 96 92 L 12/26/17 03:13 12/26/17 08:00 Temperature 98.6 F 98.2 F Pulse Rate 108 H 97 H Respiratory Rate 18 20 Blood Pressure 128/81 163/86 H Pulse Oximetry 92 L 92 L Intake & Output 12/25/17 12/26/17 12/26/17 18:59 06:59 18:59 Intake Total 360 / 360 Output Total 150 / 150 Balance -150 / -150 360 / 360 Weight 122.8 kg Intake: Oral 360 / 360 Output: Urine 150 / 150 Other: # Voids 1 2 Date of Last Bowel Movement 12/25/17 12/25/17 # Bowel Movements 0 Medications and Allergies Active Medications: Active Medications Acetaminophen (Tylenol) 650 mg PO Q4H PRN PRN Reason: Temp > 100.4 Hydrocodone Bitart/Acetaminophen ([place] 7.5/325) 1 tab PO Q6H PRN PRN Reason: PAIN SCALE 4 TO 6 MODERATE Last Admin: 12/26/17 11:00 Dose: 1 tab Al Hydroxide/Mg Hydroxide (Milk Of Elvi Lijeremiah) 30 ml PO Q12H PRN PRN Reason: Mild Constipation Atorvastatin Calcium (Lipitor) 10 mg PO HS [facility] Bisacodyl (Dulcolax Supp) 10 mg RECTAL DAILY PRN PRN Reason: SEVERE CONSITIPATION Clonidine HCl (Catapres) 0.1 mg PO Q6H PRN PRN Reason: HYPERTENSION Last Admin: 12/24/17 03:12 Dose: 0.1 mg Dextrose (D50w Vial) 50 ml IV.PUSH UNSCH PRN PRN Reason: PER HYPOGLYCEMIA PROTOCOL Glucagon (Glucagon Inj) 1 mg OTHER PRN PRN PRN Reason: for Hypoglycemia Protocol Sodium Chloride (Ns Inj) 1,000 mls @ 100 mls/hr IV.CONT .Q10H [facility] Last Admin: 12/26/17 12:31 Dose: Not Given Insulin Human Regular (Novolin R Correctional Sugar Inj) 0 units SQ ACHS AND 3AM [facility]; Protocol Last Admin: 12/26/17 08:29 Dose: 1 units Lactulose (Lactulose Liq) 30 ml PO DAILY PRN PRN Reason: SEVERE CONSITIPATION Metformin HCl (Glucophage) 1,000 mg PO BID [facility] Last Admin: 12/26/17 08:29 Dose: 1,000 mg Morphine Sulfate (Morphine Inj) 2 mg IV.PUSH Q4H PRN PRN Reason: PAIN SCALE 7 TO 10 SEVERE Last Admin: 12/26/17 03:12 Dose: 2 mg Ondansetron HCl (Zofran Inj) 4 mg IV.PUSH Q6H PRN PRN Reason: NAUSEA OR VOMITING Last Admin: 12/23/17 00:27 Dose: 4 mg Senna/Docusate Sodium (Dalia-Colace) 1 tab PO BID [facility] Last Admin: 12/26/17 08:29 Dose: 1 tab Sennosides (Senokot) 17.2 mg PO Q12H PRN PRN Reason: Moderate Constipation Sodium Chloride (Ns Flush) 2 ml IV.FLUSH BID [facility] Last Admin: 12/26/17 08:29 Dose: 2 ml Sodium Chloride (Ns Flush) 2 ml IV.FLUSH PRN PRN PRN Reason: FLUSH AFTER USING IV ACCESS Allergies Allergy/AdvReac Type Severity Reaction Status Date / Time No Known Allergies Allergy Verified 12/22/17 16:11 Home Medications Medication Instructions Recorded Confirmed Type atorvastatin 10 mg PO DAILY 12/22/17 12/22/17 History glipizide 10 mg PO DAILY 12/22/17 12/22/17 History metformin 1,000 mg PO BID 12/22/17 12/22/17 History Results - Labs CBC & Chem 7: 12/26/17 05:16 12/26/17 05:16 Laboratory Results - last 24 hr 12/25/17 12/25/17 12/26/17 17:15 20:23 04:43 WBC RBC Hgb Hct MCV MCH MCHC RDW Plt Count MPV Neut % (Auto) Lymph % (Auto) [place] % (Auto) Eos % (Auto) Baso % (Auto) Neut # (Auto) Lymph # (Auto) [place] # (Auto) Eos # (Auto) Baso # (Auto) WBC Differential Differential Comment Sodium Potassium Chloride Carbon Dioxide Anion Gap BUN Creatinine Estimated GFR POC Glucose 190 H 205 H 196 H Random Glucose Calcium Phosphorus Magnesium Total Bilirubin AST ALT Alkaline Phosphatase Total Protein Albumin 12/26/17 12/26/17 12/26/17 05:16 05:16 08:22 WBC 6.5 RBC 4.34 L Hgb 13.0 Hct 37.3 L MCV 86.1 MCH 29.9 MCHC 34.8 RDW 12.8 Plt Count 192 MPV 8.0 Neut % (Auto) 70.8 H Lymph % (Auto) 16.7 [place] % (Auto) 10.8 H Eos % (Auto) 1.2 Baso % (Auto) 0.5 Neut # (Auto) 4.6 Lymph # (Auto) 1.1 [place] # (Auto) 0.7 Eos # (Auto) 0.1 Baso # (Auto) 0.0 WBC Differential . Differential Comment Auto diff final Sodium 136 Potassium 3.5 Chloride 100 Carbon Dioxide 27.0 Anion Gap 9 BUN 17 Creatinine 0.96 Estimated GFR 81 L POC Glucose 151 H Random Glucose 169 H Calcium 8.9 Phosphorus 2.8 Magnesium 1.8 Total Bilirubin 1.1 H AST 12 L ALT 35 Alkaline Phosphatase 115 Total Protein 7.4 Albumin 3.3 L - Procedures - Preoperative Diagnosis (1) Fracture of calcaneus, left, closed - Postoperative Diagnosis (1) Fracture of calcaneus, left, closed Date of procedure: 12/24/17 Procedure: 1. ORIF left calcaneus Left foot prepped/draped in supine position. Timeouts per protocol. Transcalcaneal centrally-threaded pin placed and traction to reduce varus component. Lateral sinus tarsi mini-open approach to reduce subtalar joint and fixate using 2x 4.0mm cannulated screws, followed by percutaneous fixation of plantar tuber fragment to subtalar fragments utilizing 2 x 7.3mm screws 50mm. C- arm used to confirm reduction and placement of stable fixation. Vivogen bone graft placed in void. Irrigation and closure with 2-0 vicryl and 2-0 nylon. Short posterior splint applied with heel offloaded. Left thigh tourniquet at 250mmHg x 120 minutes 2g ancef IV preop 10mL 0.5% marcaine plain Disposition: Nonweightbearing left foot in splint. Keep clean, dry, intact. Follow up with Dr Espinoza in 1 week after discharge. Clear for discharge from podiatry standpoint tomorrow if pain controlled. Implants: See implant log: Synthes 7.3mm screws 50mm x 2, synthes 4.0mm screws x 2 Vivogen bone graft Anesthesia: GETA, local (10mL 0.5% marcaine plain) Surgeon: Jasmina Espinoza DPM Assessment and Plan - Assessment (1) Calcaneal fracture Code(s): S92.009A - Unspecified fracture of unspecified calcaneus, initial encounter for closed fracture Status: Acute Plan: CLEAR FOR DISCHARGE from podiatry Keep dressing/splint clean, dry, intact. Follow up with Dr Espinoza in 1 week after discharge for dressing change. Nonweightbearing left lower extremity (1) Calcaneal fracture Qualifiers: Encounter type: subsequent encounter Calcaneus location: body Fracture type : closed Fracture alignment: displaced Laterality: left
--- NOTE | 2017-12-26 13:40 | P.PNIM ---
Subjective Interval history: This is a 57-year-old white male with significant past medical history hyperlipidemia, type 2 diabetes, rectal cancer with colectomy and colostomy. Presented to the emergency room after he fell off a ladder and landed on his left ankle. Patient indicates that he was working on his RV fixing and owning when he went to grab it became loose and he landed on his left foot and his ankle twisted. He denies any preceding symptoms such as dizziness, lightheadedness. He did not hit his head, he fell onto grass. No other injuries. He presented to the hospital for further evaluation. Patient was evaluated, had imaging studies done that showed heavily comminuted fracturing of the calcaneus. Tire Spotter was called and recommended admission and to keep n.p.o. after midnight. Patient is now evaluated, indicates pain is well controlled. Denies any recent fever, chills, no chest pain, no shortness of breath. Denies any changes in bowel, has history of bowel obstructions. No urinary symptoms. He is diabetic and his blood sugars are well-controlled at home. Patient is admitted for further evaluation and treatment. 12-23 TO GO FOR SURGERY TOMORROW DW PATIENT AND RN CONTINUE PAIN CONTROL AM LABS NORBETRO RN AND PT AND CM 12-24 TO GO FOR SURGERY WITH PODIATRY TODAY ON LEFT ANKLE FOOT 12-25 HAD SURGERY YESTERDAY ON LEFT FOOT ANKLE 12-26 PATIENT WANTS TO GO HOME HAS BEEN CLEARED BY PODIATRY NEEDS PO PAIN MEDS NORBERTO RN AND PT AND CM WILL CHECK E-FORCSE NO PREVIOUS RX IN E-FORCSE Physical Exam Vital signs: Vital Signs 12/25/17 16:00 12/25/17 19:41 12/25/17 23:49 Temperature 99.1 F 99.0 F 98.5 F Pulse Rate 109 H 113 H 113 H Respiratory Rate 20 18 18 Blood Pressure 177/88 H 167/85 H 150/79 H Pulse Oximetry 94 L 96 92 L 12/26/17 03:13 12/26/17 08:00 Temperature 98.6 F 98.2 F Pulse Rate 108 H 97 H Respiratory Rate 18 20 Blood Pressure 128/81 163/86 H Pulse Oximetry 92 L 92 L Intake & Output 12/25/17 12/26/17 12/26/17 18:59 06:59 18:59 Intake Total 360 / 360 Output Total 150 / 150 Balance -150 / -150 360 / 360 Weight 122.8 kg Intake: Oral 360 Output: Urine 150 / 150 Other: # Voids 1 2 Date of Last Bowel Movement 12/25/17 12/25/17 # Bowel Movements 0 Narrative: GENERAL: Well-nourished, well-developed patient in no apparent distress. SKIN: Warm and dry. Abrasion right FA --LEFT FOOT IS DRESSED HEAD: Atraumatic. Normocephalic. EYES: Pupils equal and round. No scleral icterus. No injection or drainage. ENT: No nasal bleeding or discharge. Mucous membranes pink and moist. NECK: Trachea midline. No JVD. CARDIOVASCULAR: Regular rate and rhythm. No murmurs, rubs or gallops RESPIRATORY: No accessory muscle use. Clear to auscultation. Breath sounds equal bilaterally. GASTROINTESTINAL: Abdomen protuberant, soft, non-tender, nondistended. Colostomy in place with loose stool. Hepatic and splenic margins not palpable. MUSCULOSKELETAL: Left foot with splint in place, intact sensation to toes. No other joint abnormality. Pedal pulses 2+ --LEFT FOOT IS DRESSED NEUROLOGICAL: Awake and alert and oriented x 3. No obvious cranial nerve deficits. Motor grossly within normal limits. Five out of 5 muscle strength in the arms and legs. Normal speech. PSYCHIATRIC: Appropriate mood and affect; insight and judgment normal. Results - Labs CBC & Chem 7: 12/26/17 05:16 12/26/17 05:16 Laboratory Results - last 24 hr 12/25/17 12/25/17 12/26/17 17:15 20:23 04:43 WBC RBC Hgb Hct MCV MCH MCHC RDW Plt Count MPV Neut % (Auto) Lymph % (Auto) [place] % (Auto) Eos % (Auto) Baso % (Auto) Neut # (Auto) Lymph # (Auto) [place] # (Auto) Eos # (Auto) Baso # (Auto) WBC Differential Differential Comment Sodium Potassium Chloride Carbon Dioxide Anion Gap BUN Creatinine Estimated GFR POC Glucose 190 H 205 H 196 H Random Glucose Calcium Phosphorus Magnesium Total Bilirubin AST ALT Alkaline Phosphatase Total Protein Albumin 12/26/17 12/26/17 12/26/17 05:16 05:16 08:22 WBC 6.5 RBC 4.34 L Hgb 13.0 Hct 37.3 L MCV 86.1 MCH 29.9 MCHC 34.8 RDW 12.8 Plt Count 192 MPV 8.0 Neut % (Auto) 70.8 H Lymph % (Auto) 16.7 [place] % (Auto) 10.8 H Eos % (Auto) 1.2 Baso % (Auto) 0.5 Neut # (Auto) 4.6 Lymph # (Auto) 1.1 [place] # (Auto) 0.7 Eos # (Auto) 0.1 Baso # (Auto) 0.0 WBC Differential . Differential Comment Auto diff final Sodium 136 Potassium 3.5 Chloride 100 Carbon Dioxide 27.0 Anion Gap 9 BUN 17 Creatinine 0.96 Estimated GFR 81 L POC Glucose 151 H Random Glucose 169 H Calcium 8.9 Phosphorus 2.8 Magnesium 1.8 Total Bilirubin 1.1 H AST 12 L ALT 35 Alkaline Phosphatase 115 Total Protein 7.4 Albumin 3.3 L 12/26/17 12:29 WBC RBC Hgb Hct MCV MCH MCHC RDW Plt Count MPV Neut % (Auto) Lymph % (Auto) [place] % (Auto) Eos % (Auto) Baso % (Auto) Neut # (Auto) Lymph # (Auto) [place] # (Auto) Eos # (Auto) Baso # (Auto) WBC Differential Differential Comment Sodium Potassium Chloride Carbon Dioxide Anion Gap BUN Creatinine Estimated GFR POC Glucose 158 H Random Glucose Calcium Phosphorus Magnesium Total Bilirubin AST ALT Alkaline Phosphatase Total Protein Albumin - Imaging Ankle X-Ray 12/22/17 13:10 Soft tissue swelling at the lateral aspect of the ankle. The ankle mortise is approximated. There is a comminuted fractures through the mid to anterior aspect of the calcaneus. CT is suggested for further evaluation. There may be a oblique fracture lucency along the posterior aspect of the calcaneus as well. CONCLUSION: Calcaneus fractures. Soft tissue swelling. Foot CT 12/22/17 13:40 CONCLUSION: 1. Base of fifth metatarsal fracture, nondisplaced. 2. Heavily comminuted fracturing of the calcaneus identified. Foot X-Ray 12/24/17 00:00 CONCLUSION: Comminuted calcaneus fracture with [address] Foot X-Ray 12/24/17 00:00 CONCLUSION: Intraoperative images - Procedures - Preoperative Diagnosis (1) Fracture of calcaneus, left, closed - Postoperative Diagnosis (1) Fracture of calcaneus, left, closed Date of procedure: 12/24/17 Procedure: 1. ORIF left calcaneus Left foot prepped/draped in supine position. Timeouts per protocol. Transcalcaneal centrally-threaded pin placed and traction to reduce varus component. Lateral sinus tarsi mini-open approach to reduce subtalar joint and fixate using 2x 4.0mm cannulated screws, followed by percutaneous fixation of plantar tuber fragment to subtalar fragments utilizing 2 x 7.3mm screws 50mm. C- arm used to confirm reduction and placement of stable fixation. Vivogen bone graft placed in void. Irrigation and closure with 2-0 vicryl and 2-0 nylon. Short posterior splint applied with heel offloaded. Left thigh tourniquet at 250mmHg x 120 minutes 2g ancef IV preop 10mL 0.5% marcaine plain Disposition: Nonweightbearing left foot in splint. Keep clean, dry, intact. Follow up with Dr Espinoza in 1 week after discharge. Clear for discharge from podiatry standpoint tomorrow if pain controlled. Implants: See implant log: Synthes 7.3mm screws 50mm x 2, synthes 4.0mm screws x 2 Vivogen bone graft Anesthesia: GETA, local (10mL 0.5% marcaine plain) Surgeon: Jasmina Espinoza DPM Assessment and Plan - Assessment (1) Calcaneal fracture Code(s): S92.009A - Unspecified fracture of unspecified calcaneus, initial encounter for closed fracture Status: Acute (2) Diabetes 1.5, managed as type 2 Code(s): E10.9 - Type 1 diabetes mellitus without complications Status: Chronic (3) Hyperlipidemia Code(s): E78.5 - Hyperlipidemia, unspecified Status: Chronic - Plan 57-year-old male who fell off a ladder and landed on left foot, twisting ankle. Imaging studies done, found with a heavily comminuted fracture of the calcaneus. S/P fall, left calcaneal fracture -Podiatry has been consulted We will order appropriate pain management, morphine IV 2 mg every 4 as needed as well as [place] 7.5/325 1 tab p.o. every 6 as needed IV fluids N.p.o. after midnight -Neurovascular checks per shift FOR SURGERY ON 11-23 WITH PODIATRY SP PROCEDURE ON 11-23 Type 2 diabetes Accu-Cheks before meals and at bedtime with insulin therapy as needed Diabetic diet -We will hold oral hypoglycemics at this time Hyperlipidemia Continue with home statin DC TO HOME TODAY WITH HHC IF CAN GET NONWEIGHT BEARING ON LEFT LE DC TO HOME Code Status: FULL CODE Discussed Condition With: RN AND PT AND CM Discharge Planning: DC TO HOME TODAY (1) Calcaneal fracture Qualifiers: Encounter type: subsequent encounter Calcaneus location: body Fracture type : closed Fracture alignment: displaced Laterality: left (3) Hyperlipidemia Qualifiers: Hyperlipidemia type: unspecified Qualified Code(s): E78.5 - Hyperlipidemia, unspecified
--- NOTE | 2017-12-26 13:42 | P.DCO ---
- Diagnosis (1) Calcaneal fracture (4) Hyperlipidemia - Physical Therapy Order: Evaluate and treat, Improve ambulation, Strength and gait training - Occupational Therapy Order: Evaluate and treat, Improve ADL, Gross motor coordination, Fine motor coordination - Home Health Nursing Order: Signs/symptoms of disease process, Medication education-adverse effect, Wound care and dressing changes - Home Health Aide Order: To assist in: Bathing and personal care, optical lathe operator and meal prep - Case Management Consult Yes - Certification I have seen patient Aaron Castillo on 12/26/17. My clinical findings support the need for the requested home health care services because: Limited mobility due to disease progression, Deconditioned with increased weakness, Limited ability to care for self, High risk of falls I certify that my clinical findings support that this patient is homebound because: Post-op weakness, Unsteady gait/balance (1) Calcaneal fracture Qualifiers: Encounter type: subsequent encounter Calcaneus location: body Fracture type : closed Fracture alignment: displaced Laterality: left (4) Hyperlipidemia Qualifiers: Hyperlipidemia type: unspecified Qualified Code(s): E78.5 - Hyperlipidemia, unspecified
--- NOTE | 2017-12-26 13:51 | P.PNIM ---
Subjective Interval history: This is a 57-year-old white male with significant past medical history hyperlipidemia, type 2 diabetes, rectal cancer with colectomy and colostomy. Presented to the emergency room after he fell off a ladder and landed on his left ankle. Patient indicates that he was working on his RV fixing and owning when he went to grab it became loose and he landed on his left foot and his ankle twisted. He denies any preceding symptoms such as dizziness, lightheadedness. He did not hit his head, he fell onto grass. No other injuries. He presented to the hospital for further evaluation. Patient was evaluated, had imaging studies done that showed heavily comminuted fracturing of the calcaneus. Terminal Operations Supervisor was called and recommended admission and to keep n.p.o. after midnight. Patient is now evaluated, indicates pain is well controlled. Denies any recent fever, chills, no chest pain, no shortness of breath. Denies any changes in bowel, has history of bowel obstructions. No urinary symptoms. He is diabetic and his blood sugars are well-controlled at home. Patient is admitted for further evaluation and treatment. 12-23 TO GO FOR SURGERY TOMORROW DW PATIENT AND RN CONTINUE PAIN CONTROL AM LABS NORBERTO RN AND PT AND CM 12-24 TO GO FOR SURGERY WITH PODIATRY TODAY ON LEFT ANKLE FOOT 12-25 HAD SURGERY YESTERDAY ON LEFT FOOT ANKLE 12-26 PATIENT WANTS TO GO HOME HAS BEEN CLEARED BY PODIATRY NEEDS PO PAIN MEDS NORBERTO RN AND PT AND CM WILL CHECK E-FORCSE NO PREVIOUS RX IN E-FORCSE E-FORCSE Prescription Drug Monitoring Database has been queried and verified prior to prescribing the controlled substance. Acute pain exception. This patient has normal, predicted, physiological, and time limited response to an adverse mechanical stimulus associated with surgery, trauma, or acute illness as described in my notes. There is a lack of alternative treatment options other than to include the prescribed narcotic treatment for this condition. WILL NEED PAIN MEDS AT DC Physical Exam Vital signs: Vital Signs 12/25/17 16:00 12/25/17 19:41 12/25/17 23:49 Temperature 99.1 F 99.0 F 98.5 F Pulse Rate 109 H 113 H 113 H Respiratory Rate 20 18 18 Blood Pressure 177/88 H 167/85 H 150/79 H Pulse Oximetry 94 L 96 92 L 12/26/17 03:13 12/26/17 08:00 Temperature 98.6 F 98.2 F Pulse Rate 108 H 97 H Respiratory Rate 18 20 Blood Pressure 128/81 163/86 H Pulse Oximetry 92 L 92 L Intake & Output 12/25/17 12/26/17 12/26/17 18:59 06:59 18:59 Intake Total 360 / 360 Output Total 150 / 150 Balance -150 / -150 360 / 360 Weight 122.8 kg Intake: Oral 360 / 360 Output: Urine 150 / 150 Other: # Voids 1 2 Date of Last Bowel Movement 12/25/17 12/25/17 # Bowel Movements 0 Narrative: GENERAL: Well-nourished, well-developed patient in no apparent distress. SKIN: Warm and dry. Abrasion right FA --LEFT FOOT IS DRESSED HEAD: Atraumatic. Normocephalic. EYES: Pupils equal and round. No scleral icterus. No injection or drainage. ENT: No nasal bleeding or discharge. Mucous membranes pink and moist. NECK: Trachea midline. No JVD. CARDIOVASCULAR: Regular rate and rhythm. No murmurs, rubs or gallops RESPIRATORY: No accessory muscle use. Clear to auscultation. Breath sounds equal bilaterally. GASTROINTESTINAL: Abdomen protuberant, soft, non-tender, nondistended. Colostomy in place with loose stool. Hepatic and splenic margins not palpable. MUSCULOSKELETAL: Left foot with splint in place, intact sensation to toes. No other joint abnormality. Pedal pulses 2+ --LEFT FOOT IS DRESSED NEUROLOGICAL: Awake and alert and oriented x 3. No obvious cranial nerve deficits. Motor grossly within normal limits. Five out of 5 muscle strength in the arms and legs. Normal speech. PSYCHIATRIC: Appropriate mood and affect; insight and judgment normal. Results - Labs CBC & Chem 7: 12/26/17 05:16 12/26/17 05:16 Laboratory Results - last 24 hr 12/25/17 12/25/17 12/26/17 17:15 20:23 04:43 WBC RBC Hgb Hct MCV MCH MCHC RDW Plt Count MPV Neut % (Auto) Lymph % (Auto) [place] % (Auto) Eos % (Auto) Baso % (Auto) Neut # (Auto) Lymph # (Auto) [place] # (Auto) Eos # (Auto) Baso # (Auto) WBC Differential Differential Comment Sodium Potassium Chloride Carbon Dioxide Anion Gap BUN Creatinine Estimated GFR POC Glucose 190 H 205 H 196 H Random Glucose Calcium Phosphorus Magnesium Total Bilirubin AST ALT Alkaline Phosphatase Total Protein Albumin 12/26/17 12/26/17 12/26/17 05:16 05:16 08:22 WBC 6.5 RBC 4.34 L Hgb 13.0 Hct 37.3 L MCV 86.1 MCH 29.9 MCHC 34.8 RDW 12.8 Plt Count 192 MPV 8.0 Neut % (Auto) 70.8 H Lymph % (Auto) 16.7 [place] % (Auto) 10.8 H Eos % (Auto) 1.2 Baso % (Auto) 0.5 Neut # (Auto) 4.6 Lymph # (Auto) 1.1 [place] # (Auto) 0.7 Eos # (Auto) 0.1 Baso # (Auto) 0.0 WBC Differential . Differential Comment Auto diff final Sodium 136 Potassium 3.5 Chloride 100 Carbon Dioxide 27.0 Anion Gap 9 BUN 17 Creatinine 0.96 Estimated GFR 81 L POC Glucose 151 H Random Glucose 169 H Calcium 8.9 Phosphorus 2.8 Magnesium 1.8 Total Bilirubin 1.1 H AST 12 L ALT 35 Alkaline Phosphatase 115 Total Protein 7.4 Albumin 3.3 L 12/26/17 12:29 WBC RBC Hgb Hct MCV MCH MCHC RDW Plt Count MPV Neut % (Auto) Lymph % (Auto) [place] % (Auto) Eos % (Auto) Baso % (Auto) Neut # (Auto) Lymph # (Auto) [place] # (Auto) Eos # (Auto) Baso # (Auto) WBC Differential Differential Comment Sodium Potassium Chloride Carbon Dioxide Anion Gap BUN Creatinine Estimated GFR POC Glucose 158 H Random Glucose Calcium Phosphorus Magnesium Total Bilirubin AST ALT Alkaline Phosphatase Total Protein Albumin - Imaging ITS Impressions Ankle X-Ray 12/22/17 13:10 Soft tissue swelling at the lateral aspect of the ankle. The ankle mortise is approximated. There is a comminuted fractures through the mid to anterior aspect of the calcaneus. CT is suggested for further evaluation. There may be a oblique fracture lucency along the posterior aspect of the calcaneus as well. CONCLUSION: Calcaneus fractures. Soft tissue swelling. Foot CT 12/22/17 13:40 CONCLUSION: 1. Base of fifth metatarsal fracture, nondisplaced. 2. Heavily comminuted fracturing of the calcaneus identified. Foot X-Ray 12/24/17 00:00 CONCLUSION: Comminuted calcaneus fracture with [address] - Procedures - Preoperative Diagnosis (1) Fracture of calcaneus, left, closed - Postoperative Diagnosis (1) Fracture of calcaneus, left, closed Date of procedure: 12/24/17 Procedure: 1. ORIF left calcaneus Left foot prepped/draped in supine position. Timeouts per protocol. Transcalcaneal centrally-threaded pin placed and traction to reduce varus component. Lateral sinus tarsi mini-open approach to reduce subtalar joint and fixate using 2x 4.0mm cannulated screws, followed by percutaneous fixation of plantar tuber fragment to subtalar fragments utilizing 2 x 7.3mm screws 50mm. C- arm used to confirm reduction and placement of stable fixation. Vivogen bone graft placed in void. Irrigation and closure with 2-0 vicryl and 2-0 nylon. Short posterior splint applied with heel offloaded. Left thigh tourniquet at 250mmHg x 120 minutes 2g ancef IV preop 10mL 0.5% marcaine plain Disposition: Nonweightbearing left foot in splint. Keep clean, dry, intact. Follow up with Dr Espinoza in 1 week after discharge. Clear for discharge from podiatry standpoint tomorrow if pain controlled. Implants: See implant log: Synthes 7.3mm screws 50mm x 2, synthes 4.0mm screws x 2 Vivogen bone graft Anesthesia: GETA, local (10mL 0.5% marcaine plain) Surgeon: Jasmina Espinoza DPM Assessment and Plan - Assessment (1) Calcaneal fracture Code(s): S92.009A - Unspecified fracture of unspecified calcaneus, initial encounter for closed fracture Status: Acute (2) Fracture of calcaneus, left, closed Code(s): S92.002A - Unspecified fracture of left calcaneus, initial encounter for closed fracture Status: Acute (3) Diabetes 1.5, managed as type 2 Code(s): E10.9 - Type 1 diabetes mellitus without complications Status: Chronic (4) Hyperlipidemia Code(s): E78.5 - Hyperlipidemia, unspecified Status: Chronic - Plan 57-year-old male who fell off a ladder and landed on left foot, twisting ankle. Imaging studies done, found with a heavily comminuted fracture of the calcaneus. S/P fall, left calcaneal fracture -Podiatry has been consulted We will order appropriate pain management, morphine IV 2 mg every 4 as needed as well as [place] 7.5/325 1 tab p.o. every 6 as needed IV fluids N.p.o. after midnight -Neurovascular checks per shift FOR SURGERY ON 11-23 WITH PODIATRY SP PROCEDURE ON 11-23 Type 2 diabetes Accu-Cheks before meals and at bedtime with insulin therapy as needed Diabetic diet -We will hold oral hypoglycemics at this time Hyperlipidemia Continue with home statin DC TO HOME TODAY WITH HHC IF CAN GET NONWEIGHT BEARING ON LEFT LE DC TO HOME Code Status: FULL CODE Discussed Condition With: RN AND PT AND CM Discharge Planning: DC TO HOME TODAY WITH HHC (1) Calcaneal fracture Qualifiers: Encounter type: subsequent encounter Calcaneus location: body Fracture type : closed Fracture alignment: displaced Laterality: left (4) Hyperlipidemia Qualifiers: Hyperlipidemia type: unspecified Qualified Code(s): E78.5 - Hyperlipidemia, unspecified
--- NOTE | 2017-12-26 13:59 | P.DS ---
Date of admission: 12/22/17 18:18 Primary care physician: UNKNOWN Attending physician on discharge: Adalberto Singh Anticipated date of discharge: 12/26/17 Brief History from admission: This is a 57-year-old white male with significant past medical history hyperlipidemia, type 2 diabetes, rectal cancer with colectomy and colostomy. Presented to the emergency room after he fell off a ladder and landed on his left ankle. Patient indicates that he was working on his RV fixing and owning when he went to grab it became loose and he landed on his left foot and his ankle twisted. He denies any preceding symptoms such as dizziness, lightheadedness. He did not hit his head, he fell onto grass. No other injuries. He presented to the hospital for further evaluation. Patient was evaluated, had imaging studies done that showed heavily comminuted fracturing of the calcaneus. Toggler was called and recommended admission and to keep n.p.o. after midnight. Patient is now evaluated, indicates pain is well controlled. Denies any recent fever, chills, no chest pain, no shortness of breath. Denies any changes in bowel, has history of bowel obstructions. No urinary symptoms. He is diabetic and his blood sugars are well-controlled at home. Patient is admitted for further evaluation and treatment. Patient update on day of discharge: This is a 57-year-old white male with significant past medical history hyperlipidemia, type 2 diabetes, rectal cancer with colectomy and colostomy. Presented to the emergency room after he fell off a ladder and landed on his left ankle. Patient indicates that he was working on his RV fixing and owning when he went to grab it became loose and he landed on his left foot and his ankle twisted. He denies any preceding symptoms such as dizziness, lightheadedness. He did not hit his head, he fell onto grass. No other injuries. He presented to the hospital for further evaluation. Patient was evaluated, had imaging studies done that showed heavily comminuted fracturing of the calcaneus. Toggler was called and recommended admission and to keep n.p.o. after midnight. Patient is now evaluated, indicates pain is well controlled. Denies any recent fever, chills, no chest pain, no shortness of breath. Denies any changes in bowel, has history of bowel obstructions. No urinary symptoms. He is diabetic and his blood sugars are well-controlled at home. Patient is admitted for further evaluation and treatment. 12-23 TO GO FOR SURGERY TOMORROW DW PATIENT AND RN CONTINUE PAIN CONTROL AM LABS DW RN AND PT AND CM 12-24 TO GO FOR SURGERY WITH PODIATRY TODAY ON LEFT ANKLE FOOT 12-25 HAD SURGERY YESTERDAY ON LEFT FOOT ANKLE 12-26 PATIENT WANTS TO GO HOME HAS BEEN CLEARED BY PODIATRY NEEDS PO PAIN MEDS NORBERTO RN AND PT AND CM WILL CHECK E-FORCSE NO PREVIOUS RX IN E-FORCSE E-FORCSE Prescription Drug Monitoring Database has been queried and verified prior to prescribing the controlled substance. Acute pain exception. This patient has normal, predicted, physiological, and time limited response to an adverse mechanical stimulus associated with surgery, trauma, or acute illness as described in my notes. There is a lack of alternative treatment options other than to include the prescribed narcotic treatment for this condition. WILL NEED PAIN MEDS AT DC DS: Diagnosis - Discharge Diagnosis (1) Calcaneal fracture Status: Acute (2) Fracture of calcaneus, left, closed Status: Acute (3) Diabetes 1.5, managed as type 2 Status: Chronic (4) Hyperlipidemia Status: Chronic DS: Medications - Discharge Medications Prescriptions: hydrocodone-acetaminophen 1 tab PO Q4H PRN #40 tab PRN Reason: Pain sennosides-docusate sodium [Senna Plus] 2 tab PO BID #120 tab DS: Summary Hospital Course: This is a 57-year-old white male with significant past medical history hyperlipidemia, type 2 diabetes, rectal cancer with colectomy and colostomy. Presented to the emergency room after he fell off a ladder and landed on his left ankle. Patient indicates that he was working on his RV fixing and owning when he went to grab it became loose and he landed on his left foot and his ankle twisted. He denies any preceding symptoms such as dizziness, lightheadedness. He did not hit his head, he fell onto grass. No other injuries. He presented to the hospital for further evaluation. Patient was evaluated, had imaging studies done that showed heavily comminuted fracturing of the calcaneus. Toggler was called and recommended admission and to keep n.p.o. after midnight. Patient is now evaluated, indicates pain is well controlled. Denies any recent fever, chills, no chest pain, no shortness of breath. Denies any changes in bowel, has history of bowel obstructions. No urinary symptoms. He is diabetic and his blood sugars are well-controlled at home. Patient is admitted for further evaluation and treatment. 12-23 TO GO FOR SURGERY TOMORROW DW PATIENT AND RN CONTINUE PAIN CONTROL AM LABS DW RN AND PT AND CM 12-24 TO GO FOR SURGERY WITH PODIATRY TODAY ON LEFT ANKLE FOOT 12-25 HAD SURGERY YESTERDAY ON LEFT FOOT ANKLE 12-26 PATIENT WANTS TO GO HOME HAS BEEN CLEARED BY PODIATRY NEEDS PO PAIN MEDS DW RN AND PT AND CM WILL CHECK E-FORCSE NO PREVIOUS RX IN E-FORCSE E-FORCSE Prescription Drug Monitoring Database has been queried and verified prior to prescribing the controlled substance. Acute pain exception. This patient has normal, predicted, physiological, and time limited response to an adverse mechanical stimulus associated with surgery, trauma, or acute illness as described in my notes. There is a lack of alternative treatment options other than to include the prescribed narcotic treatment for this condition. WILL NEED PAIN MEDS AT DC - Time Spent with Patient Total time spent providing and/or coordinating discharge services: Greater than 30 minutes - Quality: VTE Deep Vein Thrombosis/Pulmonary Embolism Present on Admission: No Exam Vital signs: Vital Signs 12/25/17 16:00 12/25/17 19:41 12/25/17 23:49 Temperature 99.1 F 99.0 F 98.5 F Pulse Rate 109 H 113 H 113 H Respiratory Rate 20 18 18 Blood Pressure 177/88 H 167/85 H 150/79 H Pulse Oximetry 94 L 96 92 L 12/26/17 03:13 12/26/17 08:00 Temperature 98.6 F 98.2 F Pulse Rate 108 H 97 H Respiratory Rate 18 20 Blood Pressure 128/81 163/86 H Pulse Oximetry 92 L 92 L Intake & Output 12/25/17 12/26/17 12/26/17 18:59 06:59 18:59 Intake Total 360 / 360 Output Total 150 / 150 Balance -150 / -150 360 / 360 Weight 122.8 kg Intake: Oral 360 / 360 Output: Urine 150 / 150 Other: # Voids 1 2 Date of Last Bowel Movement 12/25/17 12/25/17 # Bowel Movements 0 Narrative: GENERAL: Well-nourished, well-developed patient in no apparent distress. SKIN: Warm and dry. Abrasion right FA --LEFT FOOT IS DRESSED HEAD: Atraumatic. Normocephalic. EYES: Pupils equal and round. No scleral icterus. No injection or drainage. ENT: No nasal bleeding or discharge. Mucous membranes pink and moist. NECK: Trachea midline. No JVD. CARDIOVASCULAR: Regular rate and rhythm. No murmurs, rubs or gallops RESPIRATORY: No accessory muscle use. Clear to auscultation. Breath sounds equal bilaterally. GASTROINTESTINAL: Abdomen protuberant, soft, non-tender, nondistended. Colostomy in place with loose stool. Hepatic and splenic margins not palpable. MUSCULOSKELETAL: Left foot with splint in place, intact sensation to toes. No other joint abnormality. Pedal pulses 2+ --LEFT FOOT IS DRESSED NEUROLOGICAL: Awake and alert and oriented x 3. No obvious cranial nerve deficits. Motor grossly within normal limits. Five out of 5 muscle strength in the arms and legs. Normal speech. PSYCHIATRIC: Appropriate mood and affect; insight and judgment normal. Results Procedures completed during hospitalization: - Preoperative Diagnosis (1) Fracture of calcaneus, left, closed - Postoperative Diagnosis (1) Fracture of calcaneus, left, closed Date of procedure: 12/24/17 Procedure: 1. ORIF left calcaneus Left foot prepped/draped in supine position. Timeouts per protocol. Transcalcaneal centrally-threaded pin placed and traction to reduce varus component. Lateral sinus tarsi mini-open approach to reduce subtalar joint and fixate using 2x 4.0mm cannulated screws, followed by percutaneous fixation of plantar tuber fragment to subtalar fragments utilizing 2 x 7.3mm screws 50mm. C- arm used to confirm reduction and placement of stable fixation. Vivogen bone graft placed in void. Irrigation and closure with 2-0 vicryl and 2-0 nylon. Short posterior splint applied with heel offloaded. Left thigh tourniquet at 250mmHg x 120 minutes 2g ancef IV preop 10mL 0.5% marcaine plain Disposition: Nonweightbearing left foot in splint. Keep clean, dry, intact. Follow up with Dr Espinoza in 1 week after discharge. Clear for discharge from podiatry standpoint tomorrow if pain controlled. Implants: See implant log: Synthes 7.3mm screws 50mm x 2, synthes 4.0mm screws x 2 Vivogen bone graft Anesthesia: GETA, local (10mL 0.5% marcaine plain) Surgeon: Jasmina Espinoza DPM Completed studies during hospitalization: Laboratory Results WBC 6.5 th/mm3 (4.0-11.0) 12/26/17 05:16 RBC 4.34 mil/mm3 (4.50-5.90) L 12/26/17 05:16 Hgb 13.0 gm/dL (13.0-17.0) 12/26/17 05:16 Hct 37.3 % (39.0-51.0) L 12/26/17 05:16 MCV 86.1 fL (80.0-100.0) 12/26/17 05:16 MCH 29.9 pg (27.0-34.0) 12/26/17 05:16 MCHC 34.8 % (32.0-36.0) 12/26/17 05:16 RDW 12.8 % (11.6-17.2) 12/26/17 05:16 Plt Count 192 th/mm3 (150-450) 12/26/17 05:16 MPV 8.0 fL (7.0-11.0) 12/26/17 05:16 Neut % (Auto) 70.8 % (16.0-70.0) H 12/26/17 05:16 Lymph % (Auto) 16.7 % (9.0-44.0) 12/26/17 05:16 Crowley % (Auto) 10.8 % (0.0-8.0) H 12/26/17 05:16 Eos % (Auto) 1.2 % (0.0-4.0) 12/26/17 05:16 Baso % (Auto) 0.5 % (0.0-2.0) 12/26/17 05:16 Neut # (Auto) 4.6 th/mm3 (1.8-7.7) 12/26/17 05:16 Lymph # (Auto) 1.1 th/mm3 (1.0-4.8) 12/26/17 05:16 Crowley # (Auto) 0.7 th/mm3 (0.0-0.9) 12/26/17 05:16 Eos # (Auto) 0.1 th/mm3 (0.0-0.4) 12/26/17 05:16 Baso # (Auto) 0.0 th/mm3 (0.0-0.2) 12/26/17 05:16 WBC Differential . 12/26/17 05:16 Differential Comment Auto diff final 12/26/17 05:16 PT 11.9 sec (9.8-11.6) H 12/22/17 16:00 INR 1.2 Ratio 12/22/17 16:00 APTT 24.3 sec (24.3-30.1) 12/22/17 16:00 Puncture Site Right radial 12/24/17 00:18 Patient Temperature 98.6 12/24/17 00:18 O2 Saturation 91 % (90-100) 12/24/17 00:18 ABG pH 7.39 (7.380-7.420) 12/24/17 00:18 ABG pCO2 41 mmHg (38-42) 12/24/17 00:18 ABG pO2 69 mmHg (61-120) 12/24/17 00:18 ABG HCO3 24 mmol/L (22-26) 12/24/17 00:18 ABG O2 Content 17.8 Vol % (12.0-20.0) 12/24/17 00:18 ABG Base Excess -0.3 mmol/L (-2-2) 12/24/17 00:18 ABG Methemoglobin 1.2 % (0-2) 12/24/17 00:18 Kyle Test Present 12/24/17 00:18 Hemoglobin 14.0 G/DL (12.0-16.0) 12/24/17 00:18 Carboxyhemoglobin 2.0 % (0-4) 12/24/17 00:18 O2 Delivery Device Nasal cannula 12/24/17 00:18 Liter Flow 2.00 L/M 12/24/17 00:18 Critical Value No 12/24/17 00:18 Sodium 136 meq/L (136-145) 12/26/17 05:16 Potassium 3.5 meq/L (3.5-5.1) 12/26/17 05:16 Chloride 100 meq/L (98-107) 12/26/17 05:16 Carbon Dioxide 27.0 meq/L (21.0-32.0) 12/26/17 05:16 Anion Gap 9 meq/L (5-15) 12/26/17 05:16 BUN 17 mg/dL (7-18) 12/26/17 05:16 Creatinine 0.96 mg/dL (0.60-1.30) 12/26/17 05:16 Estimated GFR 81 mL/min (>89) L 12/26/17 05:16 POC Glucose 158 mg/dl (68-110) H 12/26/17 12:29 Random Glucose 169 mg/dL (74-106) H 12/26/17 05:16 Hemoglobin A1c 6.7 % (4.3-6.0) H 12/24/17 04:48 Calcium 8.9 mg/dL (8.5-10.1) 12/26/17 05:16 Phosphorus 2.8 mg/dL (2.5-4.9) 12/26/17 05:16 Magnesium 1.8 mg/dL (1.5-2.5) 12/26/17 05:16 Total Bilirubin 1.1 mg/dL (0.2-1.0) H 12/26/17 05:16 AST 12 U/L (15-37) L 12/26/17 05:16 ALT 35 U/L (12-78) 12/26/17 05:16 Alkaline Phosphatase 115 U/L (45-117) 12/26/17 05:16 Total Protein 7.4 g/dL (6.4-8.2) 12/26/17 05:16 Albumin 3.3 g/dL (3.4-5.0) L 12/26/17 05:16 TSH 2.530 uIU/mL (0.358-3.740) 12/24/17 04:48 Free T4 1.18 ng/dL (0.76-1.46) 12/24/17 04:48 Urine Color Yellow (Yellw/Straw) 12/22/17 23:40 Urine Clarity Clear (Clear) 12/22/17 23:40 Urine pH 5.0 (5.0-8.5) 12/22/17 23:40 Ur Specific Crockett 1.020 (1.002-1.035) 12/22/17 23:40 Urine Protein Negative mg/dL (Neg-Trace) 12/22/17 23:40 Urine Glucose (UA) Negative mg/dL (Negative) 12/22/17 23:40 Urine Ketones Negative mg/dL (Negative) 12/22/17 23:40 Urine Occult Blood Negative (Negative) 12/22/17 23:40 Urine Nitrate Negative (Negative) 12/22/17 23:40 Urine Bilirubin Negative (Negative) 12/22/17 23:40 Urine Urobilinogen Less than 2 mg/dL (Less than 2) 12/22/17 23:40 Ur Leukocyte Esterase Negative (Negative) 12/22/17 23:40 Urine RBC 1 /hpf (0-3) 12/22/17 23:40 Urine WBC 1 /hpf (0-5) 12/22/17 23:40 Urine Mucus Few /lpf (Occasional) H 12/22/17 23:40 Micro UA Comment Culture not ind 12/22/17 23:40 Ur Microscopic Review Not Reportable 12/22/17 23:40 Urine Culture Comments Culture not ind 12/22/17 23:40 Blood Type A Negative 12/22/17 16:00 Blood Type Recheck Required 12/22/17 16:00 Antibody Screen Negative 12/22/17 16:00 Impressions Ankle X-Ray 12/22/17 13:10 Soft tissue swelling at the lateral aspect of the ankle. The ankle mortise is approximated. There is a comminuted fractures through the mid to anterior aspect of the calcaneus. CT is suggested for further evaluation. There may be a oblique fracture lucency along the posterior aspect of the calcaneus as well. CONCLUSION: Calcaneus fractures. Soft tissue swelling. Foot CT 12/22/17 13:40 CONCLUSION: 1. Base of fifth metatarsal fracture, nondisplaced. 2. Heavily comminuted fracturing of the calcaneus identified. Foot X-Ray 12/24/17 00:00 CONCLUSION: Comminuted calcaneus fracture with [address] internal [address] screws in place. Labs on day of discharge: Labs from last 24 hours 12/26/17 12/26/17 12/26/17 12:29 08:22 05:16 WBC RBC Hgb Hct MCV MCH MCHC RDW Plt Count MPV Neut % (Auto) Lymph % (Auto) Crowley % (Auto) Eos % (Auto) Baso % (Auto) Neut # (Auto) Lymph # (Auto) Crowley # (Auto) Eos # (Auto) Baso # (Auto) WBC Differential Differential Comment Sodium 136 Potassium 3.5 Chloride 100 Carbon Dioxide 27.0 Anion Gap 9 BUN 17 Creatinine 0.96 Estimated GFR 81 L POC Glucose 158 H 151 H Random Glucose 169 H Calcium 8.9 Phosphorus 2.8 Magnesium 1.8 Total Bilirubin 1.1 H AST 12 L ALT 35 Alkaline Phosphatase 115 Total Protein 7.4 Albumin 3.3 L 12/26/17 12/26/17 12/25/17 05:16 04:43 20:23 WBC 6.5 RBC 4.34 L Hgb 13.0 Hct 37.3 L MCV 86.1 MCH 29.9 MCHC 34.8 RDW 12.8 Plt Count 192 MPV 8.0 Neut % (Auto) 70.8 H Lymph % (Auto) 16.7 Crowley % (Auto) 10.8 H Eos % (Auto) 1.2 Baso % (Auto) 0.5 Neut # (Auto) 4.6 Lymph # (Auto) 1.1 Crowley # (Auto) 0.7 Eos # (Auto) 0.1 Baso # (Auto) 0.0 WBC Differential . Differential Comment Auto diff final Sodium Potassium Chloride Carbon Dioxide Anion Gap BUN Creatinine Estimated GFR POC Glucose 196 H 205 H Random Glucose Calcium Phosphorus Magnesium Total Bilirubin AST ALT Alkaline Phosphatase Total Protein Albumin 12/25/17 17:15 WBC RBC Hgb Hct MCV MCH MCHC RDW Plt Count MPV Neut % (Auto) Lymph % (Auto) Crowley % (Auto) Eos % (Auto) Baso % (Auto) Neut # (Auto) Lymph # (Auto) Crowley # (Auto) Eos # (Auto) Baso # (Auto) WBC Differential Differential Comment Sodium Potassium Chloride Carbon Dioxide Anion Gap BUN Creatinine Estimated GFR POC Glucose 190 H Random Glucose Calcium Phosphorus Magnesium Total Bilirubin AST ALT Alkaline Phosphatase Total Protein Albumin - Impressions ITS Impressions Ankle X-Ray 12/22/17 13:10 Soft tissue swelling at the lateral aspect of the ankle. The ankle mortise is approximated. There is a comminuted fractures through the mid to anterior aspect of the calcaneus. CT is suggested for further evaluation. There may be a oblique fracture lucency along the posterior aspect of the calcaneus as well. CONCLUSION: Calcaneus fractures. Soft tissue swelling. Foot CT 12/22/17 13:40 CONCLUSION: 1. Base of fifth metatarsal fracture, nondisplaced. 2. Heavily comminuted fracturing of the calcaneus identified. Foot X-Ray 12/24/17 00:00 CONCLUSION: Comminuted calcaneus fracture with [address] screws [address]. Discharge Plan - Discharge Disposition Patient Disposition: W/Home Health Service - Discharge Condition Condition: Stable - Discharge Order Discharge Orders: Discharge Order (Routine); Ordered 12/26/17 Ordered By: Adalberto Singh - Discharge Details Anticipated Discharge Date: 12/26/17 Discharge Comment: DC TO HOME WITH [facility] - Physicians Team Primary Care Provider: UNKNOWN, Attending Provider: Adalberto Singh
[2017-12-26 16:01] VITALS: BP 176/88; PULSE 103; TEMP 98.4; O2SAT 90
== END 2017-12-26 17:15 | disposition home health service (06) ==
LOC: NEPD 12:33 → NEDA 18:18 → N06 18:34
PROVIDERS: ADMIT Hospitalist; ATTEND Hospitalist
PROC: ORIFCAL (2017-12-24 19:10)